=== PATIENT | female | born 1935 | race Caucasian/White ===

== ENCOUNTER 2017-06-26 19:26 | Inpatient (IN) | payer MEDICARE, OTHER ==
--- NOTE | 2017-06-26 21:37 | EDM.PDOC ---
ED HPI GENERAL MEDICAL PROBLEM - General Chief Complaint: Respiratory Problem Stated Complaint: SOB Time Seen by Provider: 06/26/17 19:44 Source of Information: Reports: Patient, Family (Daughter), Old Records, RN Notes Reviewed History Limitations: Reports: No Limitations, Physical Impairment (Hard of hearing) - History of Present Illness INITIAL COMMENTS - FREE TEXT/NARRATIVE: The patient states that she has COPD, and takes oxygen at 2 L per nasal cannula continuously. She states that she has had a dry cough for the past few weeks, and has been feeling progressively more tired and fatigued, then developed significantly worse dyspnea on exertion today. She denies shortness of breath at rest. She states that her oxygen saturation was down to 78% while on 2 L oxygen per nasal cannula. She states that her oxygen saturation is usually about 95%. She saw her PCP, Sola Rivera, today. The patient states that blood work and a chest x-ray were performed. The patient does not know any of the results. A Medrol Dosepak and Levaquin 500 mg #10 was prescribed. After picking up the prescriptions, the patient came here. The patient states that she's had similar symptoms in the past, several years ago, but she does not recall the diagnosis. Here in the ED, the patient's oxygen saturation is found to be 93% on 2 L nasal cannula. Left Chest Pain Score (Numeric/FACES): 10 - Related Data Allergies Allergy/AdvReac Type Severity Reaction Status Date / Time No Known Allergies Allergy Verified 06/26/17 19:37 Home Meds: Home Meds Aspirin [Adult Low Dose Aspirin EC] 81 mg PO DAILY 03/03/14 [History] Calcium Carbonate/Vitamin D3 [Calcium 500 + Vit D 400] 1 each PO DAILY 03/03/14 [History] Carvedilol [Coreg] 25 mg PO BID 03/03/14 [History] Fish Oil/Borage/Flax/Om3,6,9#1 [Pelion 3-6-9 Complex Softgel] 1 each PO DAILY [History] Furosemide [Lasix] 40 mg PO DAILY 03/03/14 [History] Lutein/Minerals/Vit A,C & E [Ocuvite] 1 tab PO DAILY 03/03/14 [History] Multivitamin [Multi-Vitamin Daily] 1 each PO DAILY 04/28/14 [History] atorvaSTATin [Lipitor] 10 mg PO BEDTIME 03/03/14 [History] Ascorbate Calcium/Bioflavonoid [Esme-C 500 MG] 1 each PO DAILY 06/06/14 [ History] Isosorbide Mononitrate [Imdur] 30 mg PO DAILY 06/06/14 [History] Losartan Potassium 50 mg PO DAILY 06/06/14 [History] Mirtazapine 15 mg PO DAILY 06/06/14 [History] Pantoprazole [ProTONIX] 40 mg PO DAILY 06/06/14 [History] Polyethylene Glycol 3350 [MiraLAX] 8.5 gm PO DAILY 06/06/14 [History] Fluticasone/Salmeterol [Advair 500-50] 1 puff INH BID #2 diskus 06/10/14 [Rx] Albuterol Sulfate 2.5 mg NEB ASDIRECTED PRN 01/24/15 [History] Doxycycline [Vibramycin] 100 mg PO Q12H #14 tab 01/24/15 [Rx] Past Medical History Cardiovascular History: Reports: Heart Failure, High Cholesterol, Hypertension Respiratory History: Reports: COPD Genitourinary History: Reports: Urinary Incontinence Psychiatric History: Reports: Depression Endocrine/Metabolic History: Reports: Hypothyroidism - Past Surgical History HEENT Surgical History: Reports: Cataract Surgery, Tonsillectomy GI Surgical History: Reports: Appendectomy Social & Family History - Tobacco Use Smoking Status *Q: Former Smoker Years of Tobacco use: 42 Packs/Tins Daily: 1 Month Tobacco Last Used: Quit Nov 2004 Second Hand Smoke Exposure: No - Alcohol Use Alcohol Use History: No Days Per Week of Alcohol Use: 0 - Recreational Drug Use Recreational Drug Use: No - Living Situation & Occupation Living situation: Reports: , Alone Occupation: Retired ED ROS GENERAL - Review of Systems Review Of Systems: See Below Constitutional: Reports: Fatigue HEENT: Reports: No Symptoms Respiratory: Reports: No Symptoms Cardiovascular: Reports: No Symptoms Endocrine: Reports: No Symptoms GI/Abdominal: Reports: No Symptoms : Reports: No Symptoms Musculoskeletal: Reports: No Symptoms Skin: Reports: No Symptoms Neurological: Reports: No Symptoms Psychiatric: Reports: No Symptoms Hematologic/Lymphatic: Reports: No Symptoms Immunologic: Reports: No Symptoms ED EXAM, GENERAL - Physical Exam Exam: See Below Exam Limited By: No Limitations General Appearance: Alert, WD/WN, No Apparent Distress Eye Exam: Bilateral Eye: Normal Inspection Ears: Normal External Exam, Hearing Grossly Normal Nose: Normal Inspection, No Blood Throat/Mouth: Normal Inspection, Normal Lips, Normal Voice, No Airway Compromise Head: Atraumatic, Normocephalic Neck: Normal Inspection, Full Range of Motion Respiratory/Chest: No Respiratory Distress, No Accessory Muscle Use, Decreased Breath Sounds. No: Crackles, Rhonchi, Wheezing Cardiovascular: Normal Peripheral Pulses, Regular Rate, Rhythm, No Gallop, No JVD, No Murmur, No Rub Peripheral Pulses: 4+: Radial (L), Radial (R) GI/Abdominal: Normal Bowel Sounds, Soft, Non-Tender, No Organomegaly, No Distention, No Abnormal Bruit, No Mass (Female) Exam: Deferred Rectal (Female) Exam: Deferred Back Exam: Normal Inspection, Full Range of Motion, NT Extremities: Normal Inspection, Normal Range of Motion, No Pedal Edema, Normal Capillary Refill Neurological: Alert, Oriented, Normal Cognition, No Motor/Sensory Deficits Psychiatric: Normal Affect Skin Exam: Warm, Dry, Intact, Normal Color, No Rash Lymphatic: No Adenopathy EKG INTERPRETATION EKG Date: 06/26/17 Time: 19:49 Rhythm: Other (Sinus tachycardia) Rate (Beats/Min): 100 [place]: Normal P-Wave: Present QRS: Normal ST-T: Normal QT: Normal Comparison: No Change (06/06/2014, except for rate) Course - Vital Signs Last Recorded V/S: Last Vital Signs Temp 37.2 C 06/26/17 19:31 Pulse 103 H 06/26/17 22:28 Resp 21 H 06/26/17 19:31 BP 148/98 H 06/26/17 22:28 Pulse Ox 77 L 06/26/17 19:31 - Orders/Labs/Meds Orders: Active Orders 24 hr Category Date Time Status EKG 12 Lead [EKG Documentation Completion] [RC] STAT Care 06/26/17 19:43 Active Chest 2V [CR] Stat Exams 06/26/17 20:01 Taken CULTURE BLOOD [BC] Stat Lab 06/26/17 20:25 Received CULTURE BLOOD [BC] Stat Lab 06/26/17 20:50 Received Sodium Chloride 0.9% [Normal Saline] 1,000 ml Med 06/26/17 21:45 Active IV ASDIRECTED Blood Culture x2 Reflex Set [OM.PC] Stat Oth 06/26/17 20:01 Ordered Medication Orders Sodium Chloride (Normal Saline) 1,000 mls @ 100 mls/hr IV ASDIRECTED PILI Last Admin: 06/26/17 21:47 Dose: 100 mls/hr Labs: Laboratory Tests 06/26/17 06/26/17 06/26/17 Range/Units 20:01 20:25 20:35 WBC 20.91 H (3.98-10.04) K/mm3 RBC 4.49 (3.98-5.22) M/mm3 Hgb 12.8 (11.2-15.7) gm/L Hct 40.3 (34.1-44.9) % MCV 89.8 (79.4-94.8) fl MCH 28.5 (25.6-32.2) pg MCHC 31.8 L (32.2-35.5) g/dl RDW Std Deviation 46.5 H (36.4-46.3) fL Plt Count 268 (182-369) K/mm3 MPV 9.1 L (9.4-12.3) fl Neutrophils % (Manual) 85 H (40-60) % Band Neutrophils % 0 (0-10) % Lymphocytes % (Manual) 12 L (20-40) % Atypical Lymphs % 0 % Monocytes % (Manual) 2 (2-10) % Eosinophils % (Manual) 1 (0.7-5.8) % Basophils % (Manual) 0 L (0.1-1.2) Platelet Estimate Adequate RBC Morph Comment Normal PT (8.0-13.0) SECONDS INR APTT (22-36) SECONDS D-Dimer, Quantitative (0.19-0.59) mg/L Puncture Site Rt radial ABG pH 7.42 (7.35-7.45) ABG pCO2 51.4 H (35.0-45.0) mmHg ABG pO2 63.0 L (80.0-100.0) mmHg ABG HCO3 32.5 H (22.0-26.0) meq/L ABG O2 Saturation 93.0 L (96.0-97.0) % ABG Base Excess 7.1 H (-2-2.0) Stefan Test Positive A-a Gradient 52 mmHg O2 Delivery Device Nasal cannula Oxygen Flow Rate 2.0 FiO2 28.00 (21.00-100.00) % Sodium 139 (136-145) mEq/L Potassium 3.8 (3.5-5.1) mEq/L Chloride 101 (98-107) mEq/L Carbon Dioxide 31 (21-32) mEq/L Anion Gap 10.8 (5-15) BUN 16 (7-18) mg/dL Creatinine 1.0 (0.55-1.02) mg/dL Est Cr Clr Drug Dosing TNP Estimated GFR (MDRD) 53 (>60) mL/min BUN/Creatinine Ratio 16.0 (14-18) Glucose 128 H (83-115) mg/dL Lactic Acid (0.4-2.0) mmol/L Calcium 9.4 (8.5-10.1) mg/dL Total Bilirubin 0.5 (0.2-1.0) mg/dL AST 25 (15-37) U/L ALT 21 (14-59) U/L Alkaline Phosphatase 75 (46-116) U/L Troponin I 0.214 H* (0.00-0.056) ng/mL Fqj-[id number]-Ihhjlsrlaon Pept 826 H (0-450) pg/mL Total Protein 6.6 (6.4-8.2) g/dl Albumin 3.0 L (3.4-5.0) g/dl Globulin 3.6 gm/dL Albumin/Globulin Ratio 0.8 L (1-2) 06/26/17 06/26/17 Range/Units 20:50 20:50 WBC (3.98-10.04) K/mm3 RBC (3.98-5.22) M/mm3 Hgb (11.2-15.7) gm/L Hct (34.1-44.9) % MCV (79.4-94.8) fl MCH (25.6-32.2) pg MCHC (32.2-35.5) g/dl RDW Std Deviation (36.4-46.3) fL Plt Count (182-369) K/mm3 MPV (9.4-12.3) fl Neutrophils % (Manual) (40-60) % Band Neutrophils % (0-10) % Lymphocytes % (Manual) (20-40) % Atypical Lymphs % % Monocytes % (Manual) (2-10) % Eosinophils % (Manual) (0.7-5.8) % Basophils % (Manual) (0.1-1.2) Platelet Estimate RBC Morph Comment PT 10.8 (8.0-13.0) SECONDS INR 0.99 APTT 30 (22-36) SECONDS D-Dimer, Quantitative 1.72 H (0.19-0.59) mg/L Puncture Site ABG pH (7.35-7.45) ABG pCO2 (35.0-45.0) mmHg ABG pO2 (80.0-100.0) mmHg ABG HCO3 (22.0-26.0) meq/L ABG O2 Saturation (96.0-97.0) % ABG Base Excess (-2-2.0) Stefan Test A-a Gradient mmHg O2 Delivery Device Oxygen Flow Rate FiO2 (21.00-100.00) % Sodium (136-145) mEq/L Potassium (3.5-5.1) mEq/L Chloride (98-107) mEq/L Carbon Dioxide (21-32) mEq/L Anion Gap (5-15) BUN (7-18) mg/dL Creatinine (0.55-1.02) mg/dL Est Cr Clr Drug Dosing Estimated GFR (MDRD) (>60) mL/min BUN/Creatinine Ratio (14-18) Glucose (83-115) mg/dL Lactic Acid 0.8 (0.4-2.0) mmol/L Calcium (8.5-10.1) mg/dL Total Bilirubin (0.2-1.0) mg/dL AST (15-37) U/L ALT (14-59) U/L Alkaline Phosphatase (46-116) U/L Troponin I (0.00-0.056) ng/mL [id number] Pept (0-450) pg/mL Total Protein (6.4-8.2) g/dl Albumin (3.4-5.0) g/dl Globulin gm/dL Albumin/Globulin Ratio (1-2) Meds: Medications Generic Name Dose Route Start Last Admin Trade Name Freq PRN Reason Stop Dose Admin Sodium Chloride 1,000 mls @ 100 mls/hr 06/26/17 21:45 06/26/17 21:47 Normal Saline IV 100 mls/hr ASDIRECTED PILI Administration Discontinued Medications Generic Name Dose Route Start Last Admin Trade Name Delmi PRN Reason Stop Dose Admin Aspirin 324 mg 06/26/17 22:03 06/26/17 22:28 Aspirin PO 06/26/17 22:04 324 mg ONETIME STA Administration Enoxaparin Sodium 60 mg 06/26/17 22:03 06/26/17 22:29 Lovenox SUBCUT 06/26/17 22:04 60 mg ONETIME ONE Administration Metoprolol Tartrate 5 mg 06/26/17 22:04 06/26/17 22:28 Lopressor IVPUSH 06/26/17 22:05 5 mg ONETIME ONE Administration - Re-Assessments/Exams Free Text/Narrative Re-Assessment/Exam: 06/26/17 21:00 Two-view chest radiograph reviewed. Cardiac silhouette is at the upper limits of normal. No pulmonary vascular congestion. No pleural effusions. No focal infiltrate. No pneumothorax. Hyperinflation and bilateral diaphragmatic flattening noted, consistent with COPD. Old right rib fracture, with associated atelectasis, noted. Hiatal hernia noted. Formal read per the Radiologist pending. 06/26/17 21:59 The patient's D-dimer returned elevated at 1.72. No prior d-dimer for comparison , and the patient's renal function is within normal limits. Her troponin is also elevated at 0.214; it was normal on 06/07/2014. The patient's BNP is modestly elevated at 826. No prior BNP for comparison, although her chest radiograph, as above, does not demonstrate decompensated CHF. The patient's ABG represents chronic metabolic alkalosis with full respiratory compensation. Because of the patient's elevated D-dimer, I have ordered a CT angiogram. I will order subcutaneous Lovenox to address both the elevated D-dimer and troponin. I will order four baby aspirin. While the medical records indicate that the patient is on Coreg, she is tachycardic, therefore I will order 5 mg Lopressor. 06/26/17 22:16 Notified by radiology that the patient underwent a CT angiogram of the chest earlier today. The reading per Dr. Vaughan is: 1. No findings of pulmonary embolism. 2. Coronary artery calcification. 3. Large hiatal hernia. 4. Mild areas of scarring and fibrosis as described above. I will cancel the CT angiogram of the chest. 06/26/17 23:20 Test results discussed with the patient and her son. Harrison's workup is remarkable for an elevated troponin, and an ECG demonstrating sinus tachycardia. The remainder of her workup is grossly unremarkable. While her BNP is elevated at 826, her chest radiograph does not suggest decompensated CHF, and her oxygen saturation is within normal limits on her usual 2 L oxygen per nasal cannula. I recommended admission to the hospital for further evaluation of her elevated troponin. The patient was agreeable. Case then discussed with Dr. Ann at 23:17. He agrees to admit the patient to telemetry. Departure - Departure Time of Disposition: 23:22 Disposition: Admitted As Inpatient 64 Condition: Fair Clinical Impression: Dyspnea on exertion, Sinus tachycardia, Elevated troponin - Discharge Information Referrals: Sola Rivera NP [Primary Care Provider] - - My Orders Last 24 Hours: My Active Orders 06/26/17 19:43 EKG 12 Lead [EKG Documentation Completion] [RC] STAT 06/26/17 20:01 Chest 2V [CR] Stat Blood Culture x2 Reflex Set [OM.PC] Stat 06/26/17 20:25 CULTURE BLOOD [BC] Stat 06/26/17 20:50 CULTURE BLOOD [BC] Stat 06/26/17 21:45 Sodium Chloride 0.9% [Normal Saline] 1,000 ml IV ASDIRECTED - Assessment/Plan Last 24 Hours: My Active Orders 06/26/17 19:43 EKG 12 Lead [EKG Documentation Completion] [RC] STAT 06/26/17 20:01 Chest 2V [CR] Stat Blood Culture x2 Reflex Set [OM.PC] Stat 06/26/17 20:25 CULTURE BLOOD [BC] Stat 06/26/17 20:50 CULTURE BLOOD [BC] Stat 06/26/17 21:45 Sodium Chloride 0.9% [Normal Saline] 1,000 ml IV ASDIRECTED
[2017-06-26] MEDS: Sodium Chloride 0.9% 1,000 ML IV SCH (21:47)
[2017-06-26] MEDS ORDERED: Enoxaparin 60 MG/0.6 ML Syringe SUBCUT ONE (22:03)
[2017-06-26] MEDS ORDERED: Aspirin 81 MG Tab.Chew PO STA (22:03)
[2017-06-26] MEDS ORDERED: Metoprolol Tartrate 5 MG/5 ML SDV IVPUSH ONE (22:04)
[2017-06-26] MEDS ORDERED: Bisacodyl 5 MG Tab PO PRN (23:41)
[2017-06-26] MEDS ORDERED: Acetaminophen/HYDROcodone 325-5 MG Tab PO PRN (23:41)
[2017-06-26] MEDS ORDERED: Temazepam 7.5 MG Cap PO PRN (23:41)
[2017-06-26] MEDS ORDERED: Ondansetron 4 MG/2 ML SDV IV PRN (23:41)
[2017-06-26] MEDS ORDERED: Docusate Sodium 100 MG Cap PO PRN (23:41)
[2017-06-26] MEDS ORDERED: Polyethylene Glycol 3350 Powder 17 GM Packet PO PRN (23:41)
[2017-06-26] MEDS ORDERED: Promethazine 12.5 MG in Sodium Chloride 0.9% 50 ML IV PRN (23:41)
[2017-06-26] MEDS ORDERED: LORazepam 2 MG/ML MDV IV PRN (23:41)
--- NOTE | 2017-06-26 23:41 | PCM.HP ---
H&P History of Present Illness - General Date of Service: 06/26/17 Admit Problem/Dx: Dyspnea Source of Information: Patient, Old Records, Provider, RN Notes Reviewed History Limitations: Reports: Respiratory Distress - History of Present Illness Initial Comments - Free Text/Narative: This is an 81-year-old elderly white female with past medical history of hypertension, hyperlipidemia, COPD, chronic respiratory failure on 2 L nasal cannula continuously, hypothyroidism, urinary incontinence, depression, and history of heart failure with preserved EF of 65-70% 06/09/2014 who presents to the emergency department with worsening dyspnea for the past few weeks now. She associates her primary chief complaint with dry cough and feeling easily tired and fatigued. Patient was initially seen by her primary care today at the clinic. She was found to have an elevated d-dimer of 1.72. CTA performed and she was negative for PE. Patient was discharged with Medrol Dosepak and an oral Levaquin 500 milligram daily for 10 days however patient decided to proceed to the emergency department after picking up her prescriptions for further eval. Patient reported similar episode in the past. On presentation to emergency department she was found to have a documented O2 sat of 92% on 2 L nasal cannula. Her initial workup in the emergency department shows a CBC remarkable for WBC of 20.91, neutrophils of 85%, lymphocytes of 12 persons, and basophils of 0%. Again d-dimer is 1.72. ABG shows pH of 7.42, PCO2 51.4, PO2 of 63.0, bicarbonate of 32.5 and O2 sat of 93% on 2 L nasal cannula. Her chemistry is remarkable for glucose of 128, troponin of 0.214, proBNP of 826, and albumin of 3. The EKG shows sinus tachycardia. Chest x-ray shows hyperinflated lungs with no obvious sign of infiltrates. Patient is being admitted for evaluation of her acute dyspnea. He is DNR/DNI. Left Chest Pain Score (Numeric/FACES): 10 - Related Data Allergies/Adverse Reactions: Allergies Allergy/AdvReac Type Severity Reaction Status Date / Time No Known Allergies Allergy Verified 06/26/17 19:37 Home Medications: Home Meds Aspirin [Adult Low Dose Aspirin EC] 81 mg PO DAILY 03/03/14 [History] Calcium Carbonate/Vitamin D3 [Calcium 500 + Vit D 400] 1 each PO DAILY 03/03/14 [History] Carvedilol [Coreg] 25 mg PO BID 03/03/14 [History] Fish Oil/Borage/Flax/Om3,6,9#1 [[place] 3-6-9 Complex Softgel] 1 each PO DAILY [History] Furosemide [Lasix] 40 mg PO DAILY 03/03/14 [History] Lutein/Minerals/Vit A,C & E [Ocuvite] 1 tab PO DAILY 03/03/14 [History] Multivitamin [Multi-Vitamin Daily] 1 each PO DAILY 03/03/14 [History] atorvaSTATin [Lipitor] 10 mg PO BEDTIME 03/03/14 [History] Ascorbate Calcium/Bioflavonoid [Esme-C 500 MG] 1 each PO DAILY 06/06/14 [ History] Isosorbide Mononitrate [Imdur] 30 mg PO DAILY 06/06/14 [History] Losartan Potassium 50 mg PO DAILY 06/06/14 [History] Mirtazapine 15 mg PO DAILY 06/06/14 [History] Pantoprazole [ProTONIX] 40 mg PO DAILY 06/06/14 [History] Polyethylene Glycol 3350 [MiraLAX] 8.5 gm PO DAILY 06/06/14 [History] Fluticasone/Salmeterol [Advair 500-50] 1 puff INH BID #2 diskus 06/10/14 [Rx] Albuterol Sulfate 2.5 mg NEB ASDIRECTED PRN 01/24/15 [History] Doxycycline [Vibramycin] 100 mg PO Q12H #14 tab 01/24/15 [Rx] Past Medical History Cardiovascular History: Reports: Heart Failure, High Cholesterol, Hypertension Respiratory History: Reports: COPD Genitourinary History: Reports: Urinary Incontinence Psychiatric History: Reports: Depression Endocrine/Metabolic History: Reports: Hypothyroidism - Past Surgical History HEENT Surgical History: Reports: Cataract Surgery, Tonsillectomy GI Surgical History: Reports: Appendectomy Social & Family History - Tobacco Use Smoking Status *Q: Never Smoker Years of Tobacco use: 40 Used Tobacco, but Quit: Yes Month Tobacco Last Used: Quit Nov 2004 Second Hand Smoke Exposure: No - Alcohol Use Days Per Week of Alcohol Use: 0 - Recreational Drug Use Recreational Drug Use: No H&P Review of Systems - Review of Systems: Review Of Systems: See Below General: Reports: Weakness, Fatigue. Denies: Fever, Chills, Malaise Pulmonary: Reports: Shortness of Breath, Cough. Denies: Sputum Cardiovascular: Reports: Dyspnea on Exertion Gastrointestinal: Denies: Abdominal Pain, Nausea, Vomiting Genitourinary: Reports: Incontinence Musculoskeletal: Reports: No Symptoms Skin: Denies: Cyanosis, Pallor, Diaphoresis, Rash Psychiatric: Denies: Depression, Mood Lability, Anxiety, Agitation, Hallucinations Neurological: Reports: Weakness. Denies: Confusion, Difficulty Walking, Gait Disturbance Hematologic/Lymphatic: Reports: No Symptoms Immunologic: Reports: No Symptoms Exam - Exam Exam: See Below - Vital Signs Vital Signs: Last Vital Signs Temp 37.2 C 06/26/17 19:31 Pulse 103 H 06/26/17 22:28 Resp 21 H 06/26/17 19:31 BP 148/98 H 06/26/17 22:28 Pulse Ox 77 L 06/26/17 19:31 Weight: 61.235 kg - Exam Quality Assessment: Supplemental Oxygen General: Alert, Cooperative, Mild Distress HEENT: Conjunctiva Clear, EACs Clear, EOMI, Hearing Intact, Mucosa Moist & [place] , Nares Patent, Normal Nasal Septum, Posterior Pharynx Clear, Pupils Equal, Pupils Reactive Neck: Supple, Trachea Midline, +2 Carotid Pulse wo Bruit, Full Range of Motion Lungs: Normal Respiratory Effort, Decreased Breath Sounds, Rhonchi, Other ( gastric sound in the chest ) Cardiovascular: Regular Rhythm, Tachycardia GI/Abdominal Exam: Normal Bowel Sounds, Soft, Non-Tender, No Organomegaly, No Distention, No Abnormal Bruit, No Mass (Female) Exam: Deferred Rectal (Female) Exam: Deferred Back Exam: Normal Inspection, Decreased Range of Motion Extremities: Normal Inspection, Normal Range of Motion, Non-Tender, No Pedal Edema, Normal Capillary Refill Peripheral Pulses: 2+: Posterior Tibial (L), Posterior Tibial (R), Dorsalis Pedis (L), Dorsalis Pedis (R) Skin: Warm, Dry, Intact Neuro Extensive - Mental Status: Oriented x3, Normal Cognition, Memory Intact Neuro Extensive - Motor, Sensory, Reflexes: CN II-XII Intact (limited but grossly intact), Normal Gait Psychiatric: Alert, Normal Affect, Normal Mood - Patient Data Lab Results Last 24 hrs: Laboratory Results - last 24 hr 06/26/17 06/26/17 06/26/17 Range/Units 20:01 20:25 20:35 WBC 20.91 H (3.98-10.04) K/mm3 RBC 4.49 (3.98-5.22) M/mm3 Hgb 12.8 (11.2-15.7) gm/L Hct 40.3 (34.1-44.9) % MCV 89.8 (79.4-94.8) fl MCH 28.5 (25.6-32.2) pg MCHC 31.8 L (32.2-35.5) g/dl RDW Std Deviation 46.5 H (36.4-46.3) fL Plt Count 268 (182-369) K/mm3 MPV 9.1 L (9.4-12.3) fl Neutrophils % (Manual) 85 H (40-60) % Band Neutrophils % 0 (0-10) % Lymphocytes % (Manual) 12 L (20-40) % Atypical Lymphs % 0 % Monocytes % (Manual) 2 (2-10) % Eosinophils % (Manual) 1 (0.7-5.8) % Basophils % (Manual) 0 L (0.1-1.2) Platelet Estimate Adequate RBC Morph Comment Normal PT (8.0-13.0) SECONDS INR APTT (22-36) SECONDS D-Dimer, Quantitative (0.19-0.59) mg/L Puncture Site Rt radial ABG pH 7.42 (7.35-7.45) ABG pCO2 51.4 H (35.0-45.0) mmHg ABG pO2 63.0 L (80.0-100.0) mmHg ABG HCO3 32.5 H (22.0-26.0) meq/L ABG O2 Saturation 93.0 L (96.0-97.0) % ABG Base Excess 7.1 H (-2-2.0) Stefan Test Positive A-a Gradient 52 mmHg O2 Delivery Device Nasal cannula Oxygen Flow Rate 2.0 FiO2 28.00 (21.00-100.00) % Sodium 139 (136-145) mEq/L Potassium 3.8 (3.5-5.1) mEq/L Chloride 101 (98-107) mEq/L Carbon Dioxide 31 (21-32) mEq/L Anion Gap 10.8 (5-15) BUN 16 (7-18) mg/dL Creatinine 1.0 (0.55-1.02) mg/dL Est Cr Clr Drug Dosing TNP Estimated GFR (MDRD) 53 (>60) mL/min BUN/Creatinine Ratio 16.0 (14-18) Glucose 128 H (83-115) mg/dL Lactic Acid (0.4-2.0) mmol/L Calcium 9.4 (8.5-10.1) mg/dL Total Bilirubin 0.5 (0.2-1.0) mg/dL AST 25 (15-37) U/L ALT 21 (14-59) U/L Alkaline Phosphatase 75 (46-116) U/L Troponin I 0.214 H* (0.00-0.056) ng/mL Xjy-D-Yxauvumbnnp Pept 826 H (0-450) pg/mL Total Protein 6.6 (6.4-8.2) g/dl Albumin 3.0 L (3.4-5.0) g/dl Globulin 3.6 gm/dL Albumin/Globulin Ratio 0.8 L (1-2) 06/26/17 06/26/17 Range/Units 20:50 20:50 WBC (3.98-10.04) K/mm3 RBC (3.98-5.22) M/mm3 Hgb (11.2-15.7) gm/L Hct (34.1-44.9) % MCV (79.4-94.8) fl MCH (25.6-32.2) pg MCHC (32.2-35.5) g/dl RDW Std Deviation (36.4-46.3) fL Plt Count (182-369) K/mm3 MPV (9.4-12.3) fl Neutrophils % (Manual) (40-60) % Band Neutrophils % (0-10) % Lymphocytes % (Manual) (20-40) % Atypical Lymphs % % Monocytes % (Manual) (2-10) % Eosinophils % (Manual) (0.7-5.8) % Basophils % (Manual) (0.1-1.2) Platelet Estimate RBC Morph Comment PT 10.8 (8.0-13.0) SECONDS INR 0.99 APTT 30 (22-36) SECONDS D-Dimer, Quantitative 1.72 H (0.19-0.59) mg/L Puncture Site ABG pH (7.35-7.45) ABG pCO2 (35.0-45.0) mmHg ABG pO2 (80.0-100.0) mmHg ABG HCO3 (22.0-26.0) meq/L ABG O2 Saturation (96.0-97.0) % ABG Base Excess (-2-2.0) Stefan Test A-a Gradient mmHg O2 Delivery Device Oxygen Flow Rate FiO2 (21.00-100.00) % Sodium (136-145) mEq/L Potassium (3.5-5.1) mEq/L Chloride (98-107) mEq/L Carbon Dioxide (21-32) mEq/L Anion Gap (5-15) BUN (7-18) mg/dL Creatinine (0.55-1.02) mg/dL Est Cr Clr Drug Dosing Estimated GFR (MDRD) (>60) mL/min BUN/Creatinine Ratio (14-18) Glucose (83-115) mg/dL Lactic Acid 0.8 (0.4-2.0) mmol/L Calcium (8.5-10.1) mg/dL Total Bilirubin (0.2-1.0) mg/dL AST (15-37) U/L ALT (14-59) U/L Alkaline Phosphatase (46-116) U/L Troponin I (0.00-0.056) ng/mL Bxg-M-Wfunktvryla Pept (0-450) pg/mL Total Protein (6.4-8.2) g/dl Albumin (3.4-5.0) g/dl Globulin gm/dL Albumin/Globulin Ratio (1-2) Result Diagrams: 06/27/17 05:10 06/27/17 05:10 EKG INTERPRETATION EKG Date: 06/26/17 Time: 19:49 Rhythm: Other (Sinus Tachycardia) Rate (Beats/Min): 100 [place]: Normal P-Wave: Present QRS: Normal ST-T: Normal QT: Normal Comparison: No Change *Q Meaningful Use (ADM) - VTE *Q VTE Criteria *Q: - Stroke *Q Stroke Criteria *Q: - AMI *Q AMI Criteria *Q: Problem List Initiated/Reviewed/Updated: Yes Orders Last 24hrs: Active Orders 24 hr Category Date Time Status EKG 12 Lead [EKG Documentation Completion] [RC] STAT Care 06/26/17 19:43 Active Chest 2V [CR] Stat Exams 06/26/17 20:01 Taken CULTURE BLOOD [BC] Stat Lab 06/26/17 20:25 Received CULTURE BLOOD [BC] Stat Lab 06/26/17 20:50 Received Sodium Chloride 0.9% [Normal Saline] 1,000 ml Med 06/26/17 21:45 Active IV ASDIRECTED Blood Culture x2 Reflex Set [OM.PC] Stat Oth 06/26/17 20:01 Ordered Medication Orders Sodium Chloride (Normal Saline) 1,000 mls @ 100 mls/hr IV ASDIRECTED PILI Last Admin: 06/26/17 21:47 Dose: 100 mls/hr Assessment/Plan Comment:: Assessment/Plan: Acute: Dyspnea - Possible Angina Equivalent with positive troponin level - 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 Low Score (0-3 points), risk of MACE of 0.9-1.7%: Predicts 6-week risk of major adverse cardiac event - Chest pain felt more related cardiac - Risk factors: HF with Preserved EF of 65-70%, HTN, HLD, Cand oronary Artery Calcification on CTA - CP protocol: Serial Troponin Q6 x2, ekg x 1 in am , TFT, and Lipid panel in AM - ASA, Statin, Nitro, PRN IV Morphine, BB - Lexiscan stress test- her pre-CAD risk is moderate Large Hiatal Hernia - Continue PPI - May consider GS consult Elavated D-Dimer - D-dimer 1.72 - CTA negative Sinus Tachycardia - TFT in am - Received initial treatment in ED - Telemetry - PRN Metoprolol for HR > 110 Chronic: HTN HLD COPD with fibrosis and Scarring Respiratory Failure on 2L NC continuously HF with Preserved EF 65-70% and LVH 06/19/2014 Hypothyroidism Urinary Incontinence Depression Plan: Admit to Med-Surg W/ Tele Routine AM Labs Resume Home Meds PT/OT consult Lexiscan in AM SW/CM for d/c planning Code status: DNR/DNI
[2017-06-26] MEDS ORDERED: hydrALAZINE 20 MG/ML SDV IVPUSH PRN (23:47)
[2017-06-26] MEDS ORDERED: Morphine 2 MG/ML Syringe IVPUSH PRN (23:47)
[2017-06-26] MEDS ORDERED: Metoprolol Tartrate 5 MG/5 ML SDV IVPUSH PRN (23:47)
[2017-06-27] MEDS ORDERED: methylPREDNISolone Sodium Succinate 40 MG/1 ML SDV IVPUSH ONE (00:26)
[2017-06-27] MEDS ORDERED: Azithromycin 250 MG in Sodium Chloride 0.9% 250 ML IV ONE (00:27)
[2017-06-27] MEDS: Albuterol/Ipratropium 3.0-0.5 MG/3 ML Neb Soln NEB PRN ×2 (00:36→06:20)
[2017-06-27] MEDS: methylPREDNISolone Sodium Succinate 40 MG/1 ML SDV IVPUSH SCH ×3 (02:42→17:25)
[2017-06-27] MEDS: Acetaminophen 325 MG Tab PO PRN ×2 (02:42→21:42)
[2017-06-27] MEDS: Pantoprazole 40 MG Tab.CR PO SCH (06:42)
--- NOTE | 2017-06-27 07:53 | PCM.PN ---
- General Info Date of Service: 06/27/17 Admission Dx/Problem (Free Text): Dyspnea Subjective Update: Follow up Functional Status: Reports: Pain Controlled, Tolerating Diet, Urinating - Review of Systems General: Denies: Fever, Weakness, Fatigue, Malaise, Chills HEENT: Reports: No Symptoms Pulmonary: Reports: Shortness of Breath Cardiovascular: Denies: Chest Pain Gastrointestinal: Denies: Abdominal Pain, Nausea, Vomiting Genitourinary: Reports: No Symptoms Musculoskeletal: Reports: No Symptoms Skin: Denies: Cyanosis Neurological: Denies: Confusion, Difficulty Walking, Weakness, Gait Disturbance Psychiatric: Denies: Depression, Anxiety, Agitation, Hallucinations Systems Review Comment:: No significant overnight issues. She still has dry cough. She slept really good last night. She feels better this am. No new complaints this morning. - Patient Data Vitals - Most Recent: Last Vital Signs Temp 37.6 C 06/27/17 03:23 Pulse 77 06/27/17 03:23 Resp 18 06/27/17 03:23 BP 121/59 L 06/27/17 03:23 Pulse Ox 97 06/27/17 06:24 Weight - Most Recent: 56.563 kg I&O - Last 24 Hours: Intake & Output 06/26/17 06/27/17 06/27/17 22:59 06:59 14:59 Intake Total 30 Balance 30 Lab Results Last 24 Hours: Laboratory Results - last 24 hr 06/27/17 06/27/17 Range/Units 05:10 05:10 WBC 18.54 H (3.98-10.04) K/mm3 RBC 4.10 (3.98-5.22) M/mm3 Hgb 11.7 (11.2-15.7) gm/L Hct 37.4 (34.1-44.9) % MCV 91.2 (79.4-94.8) fl MCH 28.5 (25.6-32.2) pg MCHC 31.3 L (32.2-35.5) g/dl RDW Std Deviation 47.1 H (36.4-46.3) fL Plt Count 293 (182-369) K/mm3 MPV 9.4 (9.4-12.3) fl Neut % (Auto) 92.4 H (34.0-71.1) % Lymph % (Auto) 4.4 L (19.3-51.7) % [place] % (Auto) 2.6 L (4.7-12.5) % Eos % (Auto) 0.1 L (0.7-5.8) Baso % (Auto) 0.1 (0.1-1.2) % Neut # (Auto) 17.15 H (1.56-6.13) K/mm3 Lymph # (Auto) 0.82 L (1.18-3.74) K/mm3 [place] # (Auto) 0.48 H (0.24-0.36) K/mm3 Eos # (Auto) 0.01 L (0.04-0.36) K/mm3 Baso # (Auto) 0.01 (0.01-0.08) K/mm3 Sodium 142 (136-145) mEq/L Potassium 3.8 (3.5-5.1) mEq/L Chloride 104 (98-107) mEq/L Carbon Dioxide 33 H (21-32) mEq/L Anion Gap 8.8 (5-15) BUN 14 (7-18) mg/dL Creatinine 1.0 (0.55-1.02) mg/dL Est Cr Clr Drug Dosing 30.62 mL/min Estimated GFR (MDRD) 53 (>60) mL/min BUN/Creatinine Ratio 14.0 (14-18) Glucose 170 H (83-115) mg/dL Calcium 9.0 (8.5-10.1) mg/dL Magnesium 1.7 L (1.8-2.4) mg/dl CK-MB (CK-2) 1.0 (0-3.6) ng/ml Troponin I 0.161 H* (0.00-0.056) ng/mL Triglycerides 30 (<150) mg/dL Cholesterol 132 (<200) mg/dL LDL Cholesterol Direct 41 (<100) mg/dL HDL Cholesterol 87.0 H (40-59) mg/dL Free T4 1.60 H (0.76-1.46) ng/dL TSH 3rd Generation 0.446 (0.358-3.74) uIU/mL Med Orders - Current: Current Medications Acetaminophen (Tylenol) 650 mg PO Q4H PRN PRN Reason: Pain (Mild 1-3)/fever Last Admin: 06/27/17 02:42 Dose: 650 mg Hydrocodone Bitart/Acetaminophen ([place] 325-5 Mg) 1 tab PO Q4H PRN PRN Reason: Pain (moderate 4-6) Albuterol/Ipratropium (Duoneb 3.0-0.5 Mg/3 Ml) 3 ml NEB Q4H PRN PRN Reason: Shortness Of Breath/wheezing Last Admin: 06/27/17 06:20 Dose: 3 ml Amlodipine Besylate (Norvasc) 5 mg PO DAILY [facility] Aspirin (Halfprin) 81 mg PO DAILY [facility] Bisacodyl (Dulcolax) 5 mg PO DAILY PRN PRN Reason: Constipation Calcium Carbonate (Calcium Carbonate/Vitamin D 1500 Mg-200 Unit) 0.5 tab PO DAILY [facility] Carvedilol (Coreg) 25 mg PO BID [facility] Docusate Sodium (Colace) 100 mg PO BID PRN PRN Reason: Constipation Hydralazine HCl (Apresoline) 10 mg IVPUSH Q4H PRN PRN Reason: Hypertension Sodium Chloride (Normal Saline) 1,000 mls @ 100 mls/hr IV ASDIRECTED [facility] Last Admin: 06/26/17 21:47 Dose: 100 mls/hr Promethazine HCl 12.5 mg/ (Sodium Chloride) 50.5 mls @ 100 mls/hr IV Q6H PRN PRN Reason: Nausea/Vomiting Azithromycin 250 mg/ Sodium (Chloride) 250 mls @ 250 mls/hr IV Q24H [facility] Isosorbide Mononitrate (Imdur) 30 mg PO BID [facility] Lorazepam (Ativan) 0.5 mg IV Q6H PRN PRN Reason: Anxiety Losartan Potassium (Cozaar) 50 mg PO DAILY [facility] Magnesium Sulfate (Pharmacy To Dose - Magnesium Replacement) 0 dose .XX ASDIRECTED PRN PRN Reason: RX TO WATCH MAG LEVELS Methylprednisolone Sodium Succinate (Solu-Medrol) 60 mg IVPUSH Q8H [facility] Last Admin: 06/27/17 02:42 Dose: 60 mg Metoprolol Tartrate (Lopressor) 5 mg IVPUSH Q4H PRN PRN Reason: Tachycardia Mirtazapine (Remeron) 15 mg PO DAILY [facility] Morphine Sulfate (Morphine) 0.25 mg IVPUSH Q4H PRN PRN Reason: Dyspnea Multivitamins (Thera) 1 each PO DAILY [facility] Ondansetron HCl (Zofran) 4 mg IV Q6H PRN PRN Reason: Nausea/Vomiting Pantoprazole Sodium (Protonix) 40 mg PO DAILY@0700 [facility] Last Admin: 06/27/17 06:42 Dose: 40 mg Polyethylene Glycol (Miralax) 17 gm PO DAILY PRN PRN Reason: Constipation Polyethylene Glycol (Miralax) 8.5 gm PO DAILY [facility] Potassium Chloride (Pharmacy To Dose - Potassium Replacement) 0 dose .XX ASDIRECTED PRN PRN Reason: RX TO WATCH K LEVELS Senna/Docusate Sodium (Senna Plus) 1 tab PO BID PRN PRN Reason: Constipation Simvastatin (Zocor) 10 mg PO BEDTIME [facility] Temazepam (Restoril) 7.5 mg PO BEDTIME PRN PRN Reason: Sleep Vit A/Vit C/Vit E/Selen/Cu/Zn/Lutei (Icaps Mv) 1 tab PO DAILY [facility] Discontinued Medications Aspirin (Aspirin) 324 mg PO ONETIME STA Stop: 06/26/17 22:04 Last Admin: 06/26/17 22:28 Dose: 324 mg Enoxaparin Sodium (Lovenox) 60 mg SUBCUT ONETIME ONE Stop: 06/26/17 22:04 Last Admin: 06/26/17 22:29 Dose: 60 mg Azithromycin 250 mg/ Sodium (Chloride) 250 mls @ 250 mls/hr IV ONETIME ONE Stop: 06/27/17 01:26 Last Admin: 06/27/17 02:44 Dose: Not Given Azithromycin 250 mg/ Sodium (Chloride) 125 mls @ 125 mls/hr IV ONETIME ONE Stop: 06/27/17 02:29 Last Admin: 06/27/17 02:40 Dose: 125 mls/hr Isosorbide Mononitrate (Imdur) 30 mg PO DAILY [facility] Methylprednisolone Sodium Succinate (Solu-Medrol) 40 mg IVPUSH ONETIME ONE Stop: 06/27/17 00:27 Last Admin: 06/27/17 00:50 Dose: Not Given Metoprolol Tartrate (Lopressor) 5 mg IVPUSH ONETIME ONE Stop: 06/26/17 22:05 Last Admin: 06/26/17 22:28 Dose: 5 mg - Exam Quality Assessment: Supplemental Oxygen General: Alert, Oriented, Cooperative, No Acute Distress HEENT: Pupils Equal, Pupils Reactive, EOMI, Mucous Membr. Moist/[place] Neck: Supple, Trachea Midline, No JVD Lungs: Clear to Auscultation, Normal Respiratory Effort Cardiovascular: Regular Rate, Regular Rhythm GI/Abdominal Exam: Normal Bowel Sounds, Soft, Non-Tender, No Organomegaly, No Distention, No Abnormal Bruit, No Mass, Pelvis Stable (Female) Exam: Deferred Back Exam: Normal Inspection, Decreased Range of Motion Extremities: Normal Inspection, Normal Range of Motion, Non-Tender, No Pedal Edema, Normal Capillary Refill Peripheral Pulses: 2+: Dorsalis Pedis (L), Dorsalis Pedis (R) Skin: Warm, Dry, Intact Neurological: No New Focal Deficit Psy/Mental Status: Alert, Normal Affect, Normal Mood - Problem List Review Problem List Initiated/Reviewed/Updated: Yes - My Orders Last 24 Hours: My Active Orders 06/27/17 00:30 methylPREDNISolone Sod Succ [Solu-MEDROL] 60 mg IVPUSH Q8H 06/27/17 05:10 LIPID PANEL [CHEM] AM T4 FREE [CHEM] Stat TSH [CHEM] Stat 06/27/17 09:00 Azithromycin [Zithromax] 250 mg Sodium Chloride 0.9% [Normal Saline] 250 ml IV Q24H Isosorbide Mononitrate [Imdur] 30 mg PO BID amLODIPine [Norvasc] 5 mg PO DAILY - Plan Plan:: Assessment/Plan: Acute: Dyspnea, Improved - Possible Angina Equivalent with positive troponin level - 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 Low Score (0-3 points), risk of MACE of 0.9-1.7%: Predicts 6-week risk of major adverse cardiac event - Chest pain felt more related cardiac - Risk factors: HF with Preserved EF of 65-70%, HTN, HLD, and Coronary Artery Calcification on CTA - CP protocol: Serial Troponin Q6 x2, ekg x 1 in am , TFT, and Lipid panel in AM - ASA, Statin, Nitro, PRN IV Morphine, BB - Lexiscan stress test- her pre-CAD risk is moderate Large Hiatal Hernia - Continue PPI - I felt this is causing her dry cough and possibly dyspnea - May need to see a GS in [place] Resolved: S/p Elavated D-Dimer - D-dimer 1.72 - CTA negative S/p Sinus Tachycardia - TFT: Normal TSH and slightly elevated FT4 - Received initial treatment in ED - Telemetry - PRN Metoprolol for HR > 110 Chronic: HTN HLD/CAD COPD with Fibrosis and Scarring Respiratory Failure on 2L NC continuously HF with Preserved EF 65-70% and LVH 06/19/2014 Hypothyroidism Urinary Incontinence Depression Plan: She is much better and hemodynamically stable Routine AM Labs Resume Home Meds Lipid Panel unremarkable Continue PT/OT Lexiscan/Perfusion scan today SW/CM for d/c planning Code status: DNR/DNI
[2017-06-27] MEDS ORDERED: Sodium Chloride 0.9% 10 ML Syringe FLUSH SCH (08:15)
[2017-06-27] MEDS ORDERED: Isosorbide Mononitrate 30 MG Tab.ER PO SCH (09:00)
[2017-06-27] MEDS ORDERED: Azithromycin 250 MG in Sodium Chloride 0.9% 250 ML IV SCH (09:00)
--- NOTE | 2017-06-27 10:32 | CR ---
Chest: Two views of the chest were obtained. Comparison: Previous chest x-ray of 01/24/15. Moderately large hiatal hernia is seen. Heart size at the upper limits of normal. Tortuous thoracic aorta is seen. Lungs are clear with no acute infiltrates. Slight deformity within several right and left ribs compatible with old healed fractures. Bony structures are also osteopenic. Impression: 1. Incidental findings. Nothing acute is appreciated. Diagnostic code #2
[2017-06-27] MEDS: Sodium Chloride 0.9% 1,000 ML IV SCH ×2 (10:35→21:42)
[2017-06-27] MEDS: Azithromycin 250 MG in Sodium Chloride 0.9% 250 ML IV SCH (10:36)
[2017-06-27] MEDS ORDERED: Magnesium Oxide 400 MG Tab PO ONE (11:00)
[2017-06-27] MEDS: Multivitamins with Minerals/Folic Acid/Lutein/Zeaxanth Tab PO SCH (11:11)
[2017-06-27] MEDS: Multivitamins,Therapeutic Tab PO SCH (11:11)
[2017-06-27] MEDS: Mirtazapine 15 MG Tab PO SCH (11:12)
[2017-06-27] MEDS: Aspirin 81 MG Tab.EC PO SCH (11:12)
[2017-06-27] MEDS: Losartan 25 MG Tab PO SCH (11:13)
[2017-06-27] MEDS: Carvedilol 12.5 MG Tab PO SCH ×2 (11:13→20:48)
[2017-06-27] MEDS: Isosorbide Mononitrate 30 MG Tab.ER PO SCH ×2 (11:13→20:48)
[2017-06-27] MEDS: amLODIPine 5 MG Tab PO SCH (11:13)
[2017-06-27] MEDS: Polyethylene Glycol 3350 Powder 17 GM Packet PO SCH (11:14)
[2017-06-27] MEDS: Calcium Carbonate/Vitamin D3 1500 MG-200 Units Tab PO SCH (11:15)
[2017-06-27] MEDS ORDERED: guaiFENesin 600 MG Tab.ER PO ONE (13:04)
--- NOTE | 2017-06-27 15:48 | NM ---
Cardiolite cardiac exam Technique: I have data stating the patient was stressed utilizing Lexiscan protocol. Stress dose of technetium 99m Cardiolite was 10.8 mCi. Rest dose was 30.0 mCi. SPECT imaging was obtained in 3 planes for both portions of the study. Study was also gated. Low-dose chest CT performed to allow for attenuation correction. Findings: On the attenuation corrected images there is diminished activity being seen within portions of the lateral and inferolateral mo which is noted on the stress study and improves on the rest exam. Findings are suspicious for subtle area of reversible ischemia. Ejection fraction is above 70%. Wall thickening is normal. Impression: 1. Attenuation correction images suggest a subtle area of reversible ischemia within the inferior and inferolateral mo. 2. Other portions of the Cardiolite cardiac exam are unremarkable. Diagnostic code #5
[2017-06-27] MEDS ORDERED: Simvastatin 10 MG Tab PO SCH (21:00)
[2017-06-28] MEDS: methylPREDNISolone Sodium Succinate 40 MG/1 ML SDV IVPUSH SCH ×2 (01:39→09:33)
[2017-06-28] MEDS: Pantoprazole 40 MG Tab.CR PO SCH (06:28)
[2017-06-28] MEDS: Sodium Chloride 0.9% 1,000 ML IV SCH (08:00)
[2017-06-28] MEDS ORDERED: guaiFENesin 600 MG Tab.ER PO SCH (09:00)
--- NOTE | 2017-06-28 09:10 | PCM.DCSUM1 ---
Discharge Summary - Hospital Course Brief History: This is an 81-year-old elderly white female with past medical history of hypertension, hyperlipidemia, COPD, chronic respiratory failure on 2 L nasal cannula continuously, hypothyroidism, urinary incontinence, depression, and history of heart failure with preserved EF of 65-70% 06/09/2014 who presents to the emergency department with worsening dyspnea for the past few weeks and was admitted for further evaluation. - Discharge Data Discharge Date: 06/28/17 Discharge Disposition: Home, Self-Care 01 Condition: Good - Discharge Diagnosis/Problem(s) (1) CAD (coronary artery disease) SNOMED Code(s): 32613047 ICD Code: I25.10 - ATHSCL HEART DISEASE OF [place] CORONARY ARTERY W/O ANG PCTRS Status: Chronic Qualifiers: Coronary Disease-Associated Artery/Lesion type: unspecified vessel or lesion type Associated angina: with stable angina (2) ACS (acute coronary syndrome) SNOMED Code(s): 239315783 ICD Code: I24.9 - ACUTE ISCHEMIC HEART DISEASE, UNSPECIFIED Status: Chronic (3) Dyspnea on exertion SNOMED Code(s): 09011038 ICD Code: R06.09 - OTHER FORMS OF DYSPNEA Status: Chronic (4) Hiatal hernia SNOMED Code(s): 66755577 ICD Code: K44.9 - DIAPHRAGMATIC HERNIA WITHOUT OBSTRUCTION OR GANGRENE Status: Chronic (5) Elevated d-dimer SNOMED Code(s): 700354938 ICD Code: R79.89 - OTHER SPECIFIED ABNORMAL FINDINGS OF BLOOD CHEMISTRY Status: Ruled-out (6) Sinus tachycardia by electrocardiogram SNOMED Code(s): 722626494 ICD Code: R00.0 - TACHYCARDIA, UNSPECIFIED Status: Resolved - Patient Summary/Data Operative Procedure(s) Performed: None Complications: None Recommended Follow-up Testing/Procedures: Recommend to see a golf technician for heart cath and gastric surgeon for her large hiatal hernia Hospital Course: Patient was admitted for acute dyspnea. We felt this was related to COPD exacerbation. However after putting it all together her diagnostic data and clinical examination, the patient actually had an acute coronary syndrome. She was positive with both serial troponins and nuclear stress test. We recommended transfer for higher level of care and for possible heart catheter but patient refused. She opted instead for medical management. Therefore, her Imdur was optimize and Norvasc was added to improve her symptom. Her hospital course was complicated by the finding of large hiatal hernia. We felt this was contributing to her chronic dry cough with constant irritation of her stomach to her thoraxic contents i.e. esophagus +/- lungs. Again the patient was offered for upper level of care for possible surgical intervention but she refused it. Patient is now ready and stable for discharge. Patient was advised to check her blood pressure 3-4 times a day and 3-4 times a week and show the log to her primary care doctor on follow-up appointment. She was further advised to follow- up with Dr. Lyon in [place] in 1-2 weeks. Patient expressed understanding and in agreement with the plans as discussed above. All questions were answered. - Patient Instructions Diet: Usual Diet as Tolerated Activity: As Tolerated Driving: Do Not Drive Showering/Bathing: May Shower Notify Provider of: Fever, Increased Pain, Nausea and/or Vomiting Other/Special Instructions: - Please take all mdications as directed. - Check your BP at least 3x/day and 3-4x/week. Show log to your family doctor on follow up appointment. - Recommend you see a Migration Specialist and Gastric Surgeon for your Coronary Artery Disease and Large Hiatal Hernia respectively. - Call or follow up with your family doctor for any questions or concerns right after discharge - Discharge Plan Prescriptions/Med Rec: Isosorbide Mononitrate [Imdur] 30 mg PO BID #60 tab.er amLODIPine Besylate [Norvasc] 2.5 mg PO DAILY #30 tablet Home Medications: Home Meds Aspirin [Adult Low Dose Aspirin EC] 81 mg PO DAILY 03/03/14 [History] Calcium Carbonate/Vitamin D3 [Calcium 500 + Vit D 400] 1 each PO DAILY 03/03/14 [History] Carvedilol [Coreg] 25 mg PO BID 03/03/14 [History] Furosemide [Lasix] 40 mg PO DAILY 03/03/14 [History] Lutein/Minerals/Vit A,C & E [Ocuvite] 1 tab PO DAILY 03/03/14 [History] Multivitamin [Multi-Vitamin Daily] 1 each PO DAILY 03/03/14 [History] atorvaSTATin [Lipitor] 10 mg PO BEDTIME 03/03/14 [History] Ascorbate Calcium/Bioflavonoid [Esme-C 500 MG] 1 each PO DAILY 06/06/14 [ History] Mirtazapine 15 mg PO DAILY 06/06/14 [History] Pantoprazole [ProTONIX] 40 mg PO DAILY 06/06/14 [History] Polyethylene Glycol 3350 [MiraLAX] 8.5 gm PO DAILY 06/06/14 [History] Fluticasone/Salmeterol [Advair 500-50] 1 puff INH BID #2 diskus 06/10/14 [Rx] Albuterol Sulfate 2.5 mg NEB ASDIRECTED PRN 01/24/15 [History] Denosumab [Prolia] 60 mg INJECT ASDIRECTED 06/28/17 [History] Isosorbide Mononitrate [Imdur] 30 mg PO BID #60 tab.er 06/28/17 [Rx] Losartan Potassium 50 mg PO DAILY #0 06/28/17 [Rx] Tiotropium [place] [Spiriva Respimat] 2.5 mcg INH DAILY 06/28/17 [History] amLODIPine Besylate [Norvasc] 2.5 mg PO DAILY #30 tablet 06/28/17 [Rx] Patient Handouts: Shortness of Breath, [id number], Chronic Obstructive Pulmonary Disease, [id number], Oxygen Use at Home, Aspirin, ASA oral tablets, Coronary Artery Disease, Female Referrals: Aveilno Lyon MD [Ordering Only Provider] - (already has an appointment made by her son.) - Discharge Summary/Plan Comment DC Time >30 min.: Yes (45 mins) Discharge Summary/Plan Comment: Discharge to Home Due to listed medical diagnoses in this report, patient is in need of skilled home services for nursing, PLUMBER MAINTENANCE services and physical therapy. Patient is homebound due to generalized weakness, mobility deficits, and decreased activity tolerance secondary to dyspnea. Patient will benefit from services above to increase her level of independence and functioning. Patient will be followed outpatient by her PCP, Dr. Lyon in [place], [place]. - General Info Date of Service: 06/28/17 Admission Dx/Problem (Free Text: Dyspnea Subjective Update: Follow up Functional Status: Reports: Pain Controlled, Tolerating Diet, Ambulating, Urinating - Review of Systems General: Denies: Fever HEENT: Denies: Contact Lenses Pulmonary: Reports: Shortness of Breath. Denies: Sputum Cardiovascular: Reports: Dyspnea on Exertion. Denies: Chest Pain, Palpitations , Edema, Lightheadedness Gastrointestinal: Denies: Abdominal Pain, Nausea, Vomiting Genitourinary: Reports: No Symptoms Musculoskeletal: Reports: No Symptoms Skin: Denies: Cyanosis, Pallor, Pruritis, Rash Neurological: Denies: Confusion, Difficulty Walking, Weakness, Gait Disturbance Psychiatric: Denies: Depression, Anxiety, Agitation, Hallucinations Systems Review Comment: No significant overnight or acute issues. She has no symptoms at rest. She is ready to go. She has no new complaints. - Patient Data Vitals - Most Recent: Last Vital Signs Temp 37.0 C 06/28/17 07:29 Pulse 71 06/28/17 07:29 Resp 17 06/28/17 07:29 BP 133/75 06/28/17 07:29 Pulse Ox 98 06/28/17 07:29 Weight - Most Recent: 58.287 kg I&O - Last 24 hours: Intake & Output 06/27/17 06/28/17 06/28/17 22:59 06:59 14:59 Intake Total 1470 1406 Output Total 350 425 Balance 1120 981 Lab Results - Last 24 hrs: Laboratory Results - last 24 hr 06/27/17 06/28/17 Range/Units 11:56 06:30 Sodium 144 (136-145) mEq/L Potassium 4.0 (3.5-5.1) mEq/L Chloride 109 H (98-107) mEq/L Carbon Dioxide 30 (21-32) mEq/L Anion Gap 9.0 (5-15) BUN 15 (7-18) mg/dL Creatinine 0.9 (0.55-1.02) mg/dL Est Cr Clr Drug Dosing 34.02 mL/min Estimated GFR (MDRD) 60 (>60) mL/min BUN/Creatinine Ratio 16.7 (14-18) Glucose 173 H (83-115) mg/dL Calcium 8.9 (8.5-10.1) mg/dL Magnesium 1.9 (1.8-2.4) mg/dl CK-MB (CK-2) 1.1 (0-3.6) ng/ml Troponin I 0.151 H* (0.00-0.056) ng/mL Med Orders - Current: Current Medications Acetaminophen (Tylenol) 650 mg PO Q4H PRN PRN Reason: Pain (Mild 1-3)/fever Last Admin: 06/27/17 21:42 Dose: 650 mg Hydrocodone Bitart/Acetaminophen ([place] 325-5 Mg) 1 tab PO Q4H PRN PRN Reason: Pain (moderate 4-6) Albuterol/Ipratropium (Duoneb 3.0-0.5 Mg/3 Ml) 3 ml NEB Q4H PRN PRN Reason: Shortness Of Breath/wheezing Last Admin: 06/27/17 06:20 Dose: 3 ml Amlodipine Besylate (Norvasc) 5 mg PO DAILY [facility] Last Admin: 06/27/17 11:13 Dose: 5 mg Aspirin (Halfprin) 81 mg PO DAILY [facility] Last Admin: 06/27/17 11:12 Dose: 81 mg Bisacodyl (Dulcolax) 5 mg PO DAILY PRN PRN Reason: Constipation Calcium Carbonate (Calcium Carbonate/Vitamin D 1500 Mg-200 Unit) 0.5 tab PO DAILY [facility] Last Admin: 06/27/17 11:15 Dose: 0.5 tab Carvedilol (Coreg) 25 mg PO BID [facility] Last Admin: 06/27/17 20:48 Dose: 25 mg Docusate Sodium (Colace) 100 mg PO BID PRN PRN Reason: Constipation Guaifenesin (Mucinex) 600 mg PO BID [facility] Hydralazine HCl (Apresoline) 10 mg IVPUSH Q4H PRN PRN Reason: Hypertension Sodium Chloride (Normal Saline) 1,000 mls @ 100 mls/hr IV ASDIRECTED [facility] Last Admin: 06/28/17 08:00 Dose: 100 mls/hr Promethazine HCl 12.5 mg/ (Sodium Chloride) 50.5 mls @ 100 mls/hr IV Q6H PRN PRN Reason: Nausea/Vomiting Azithromycin 250 mg/ Sodium (Chloride) 250 mls @ 250 mls/hr IV Q24H [facility] Last Admin: 06/27/17 10:36 Dose: 250 mls/hr Isosorbide Mononitrate (Imdur) 30 mg PO BID [facility] Last Admin: 06/27/17 20:48 Dose: 30 mg Lorazepam (Ativan) 0.5 mg IV Q6H PRN PRN Reason: Anxiety Losartan Potassium (Cozaar) 50 mg PO DAILY [facility] Last Admin: 06/27/17 11:13 Dose: 50 mg Magnesium Sulfate (Pharmacy To Dose - Magnesium Replacement) 0 dose .XX ASDIRECTED PRN PRN Reason: RX TO WATCH MAG LEVELS Methylprednisolone Sodium Succinate (Solu-Medrol) 60 mg IVPUSH Q8H [facility] Last Admin: 06/28/17 01:39 Dose: 60 mg Metoprolol Tartrate (Lopressor) 5 mg IVPUSH Q4H PRN PRN Reason: Tachycardia Mirtazapine (Remeron) 15 mg PO DAILY [facility] Last Admin: 06/27/17 11:12 Dose: 15 mg Morphine Sulfate (Morphine) 0.25 mg IVPUSH Q4H PRN PRN Reason: Dyspnea Multivitamins (Thera) 1 each PO DAILY [facility] Last Admin: 06/27/17 11:11 Dose: 1 each Ondansetron HCl (Zofran) 4 mg IV Q6H PRN PRN Reason: Nausea/Vomiting Pantoprazole Sodium (Protonix) 40 mg PO DAILY@0700 [facility] Last Admin: 06/28/17 06:28 Dose: 40 mg Polyethylene Glycol (Miralax) 17 gm PO DAILY PRN PRN Reason: Constipation Polyethylene Glycol (Miralax) 8.5 gm PO DAILY [facility] Last Admin: 06/27/17 11:14 Dose: 8.5 gm Potassium Chloride (Pharmacy To Dose - Potassium Replacement) 0 dose .XX ASDIRECTED PRN PRN Reason: RX TO WATCH K LEVELS Senna/Docusate Sodium (Senna Plus) 1 tab PO BID PRN PRN Reason: Constipation Simvastatin (Zocor) 10 mg PO BEDTIME [facility] Last Admin: 06/27/17 20:48 Dose: 10 mg Temazepam (Restoril) 7.5 mg PO BEDTIME PRN PRN Reason: Sleep Vit A/Vit C/Vit E/Selen/Cu/Zn/Lutei (Icaps Mv) 1 tab PO DAILY [facility] Last Admin: 06/27/17 11:11 Dose: 1 tab Discontinued Medications Aspirin (Aspirin) 324 mg PO ONETIME STA Stop: 06/26/17 22:04 Last Admin: 06/26/17 22:28 Dose: 324 mg Enoxaparin Sodium (Lovenox) 60 mg SUBCUT ONETIME ONE Stop: 06/26/17 22:04 Last Admin: 06/26/17 22:29 Dose: 60 mg Guaifenesin (Mucinex) 1,200 mg PO ONETIME ONE Stop: 06/27/17 13:05 Last Admin: 06/27/17 14:20 Dose: 1,200 mg Azithromycin 250 mg/ Sodium (Chloride) 250 mls @ 250 mls/hr IV ONETIME ONE Stop: 06/27/17 01:26 Last Admin: 06/27/17 02:44 Dose: Not Given Azithromycin 250 mg/ Sodium (Chloride) 250 mls @ 250 mls/hr IV Q24H [facility] Last Admin: 06/27/17 10:29 Dose: Not Given Azithromycin 250 mg/ Sodium (Chloride) 125 mls @ 125 mls/hr IV ONETIME ONE Stop: 06/27/17 02:29 Last Admin: 06/27/17 02:40 Dose: 125 mls/hr Isosorbide Mononitrate (Imdur) 30 mg PO DAILY [facility] Magnesium Oxide (Magnesium Oxide) 400 mg PO WITHLUNCH ONE Stop: 06/27/17 11:01 Last Admin: 06/27/17 11:11 Dose: 400 mg Methylprednisolone Sodium Succinate (Solu-Medrol) 40 mg IVPUSH ONETIME ONE Stop: 06/27/17 00:27 Last Admin: 06/27/17 00:50 Dose: Not Given Metoprolol Tartrate (Lopressor) 5 mg IVPUSH ONETIME ONE Stop: 06/26/17 22:05 Last Admin: 06/26/17 22:28 Dose: 5 mg Regadenoson (Lexiscan) 0.4 mg IVPUSH ONETIME ONE Stop: 06/27/17 08:15 Last Admin: 06/27/17 08:32 Dose: 0.4 mg Sodium Chloride (Saline Flush) 10 ml FLUSH ONETIME [facility] Stop: 06/27/17 10:00 Last Admin: 06/27/17 08:33 Dose: 10 ml - Exam Quality Assessment: Reports: Supplemental Oxygen General: Reports: Alert, Oriented, Cooperative, No Acute Distress HEENT: Reports: Pupils Equal, Pupils Reactive, EOMI, Mucous Membr. Moist/[place] Neck: Reports: Supple, Trachea Midline, No JVD Lungs: Reports: Normal Respiratory Effort, Decreased Breath Sounds, Rhonchi Cardiovascular: Reports: Regular Rate, Regular Rhythm GI/Abdominal Exam: Normal Bowel Sounds, Soft, Non-Tender, No Organomegaly, No Distention, No Abnormal Bruit, No Mass (Female) Exam: Deferred Rectal (Female) Exam: Deferred Back Exam: Reports: Normal Inspection, Decreased Range of Motion Extremities: Normal Inspection, Normal Range of Motion, Non-Tender, No Pedal Edema, Normal Capillary Refill Skin: Reports: Warm, Dry, Intact Neurological: Reports: No New Focal Deficit Psy/Mental Status: Reports: Alert, Normal Affect, Normal Mood
[2017-06-28] MEDS: Azithromycin 250 MG in Sodium Chloride 0.9% 250 ML IV SCH (09:29)
[2017-06-28] MEDS: Mirtazapine 15 MG Tab PO SCH (09:36)
[2017-06-28] MEDS: Carvedilol 12.5 MG Tab PO SCH (09:36)
[2017-06-28] MEDS: Aspirin 81 MG Tab.EC PO SCH (09:37)
[2017-06-28] MEDS: Calcium Carbonate/Vitamin D3 1500 MG-200 Units Tab PO SCH (09:37)
[2017-06-28] MEDS: Multivitamins,Therapeutic Tab PO SCH (09:37)
[2017-06-28] MEDS: Multivitamins with Minerals/Folic Acid/Lutein/Zeaxanth Tab PO SCH (09:37)
[2017-06-28] MEDS: Losartan 25 MG Tab PO SCH (09:37)
[2017-06-28] MEDS: amLODIPine 5 MG Tab PO SCH (09:38)
[2017-06-28] MEDS: Polyethylene Glycol 3350 Powder 17 GM Packet PO SCH (09:38)
[2017-06-28] MEDS: Isosorbide Mononitrate 30 MG Tab.ER PO SCH (09:38)
[2017-06-28 12:09] VITALS: BP 135/78
--- NOTE | 2017-06-28 13:03 | STRESS ---
REQUESTING PHYSICIAN: DATE: 06/27/2017 ORDERING PROVIDER: Dr. Rosas Ann. PROCEDURE: Lexiscan stress test. INDICATION: Dyspnea and angina. BASELINE EKG: Normal sinus rhythm, ventricular rate 85 beats per minute. Q-waves noted in leads II, aVF, V5 and V6. PROTOCOL: Lexiscan. Max heart rate 116 beats per minute. Peak blood pressure 182/85. Total test time 6 minutes. METS 1.0. REASON FOR STOPPING TEST: Completion of Lexiscan test. During testing and recovery, the patient did experience worsening shortness of breath sensation accompanied by mild wheezing. She did have heaviness in her chest and mild nausea. There were no ST or T-wave changes consistent with ischemia or consistent to meet criteria for positive testing. No arrhythmias were noted. IMPRESSION: 1. Electrographically-negative Lexiscan test for ischemia. 2. Normal blood pressure response to stress. 3. Nuclear imaging results pending and will be reported separately per radiologist. MMODAL /[id number]
== END 2017-06-28 13:41 | disposition home or self-care (01) | DRG 303 ==
LOC: JD.ED 19:26 → JD.MS 23:56
PROVIDERS: ADMIT Internal Medicine; ATTEND Internal Medicine
DX: I25.118 Atherosclerotic heart disease of native coronary artery with other forms of angina pectoris (principal); I24.9 Acute ischemic heart disease, unspecified; J96.10 Chronic respiratory failure, unspecified whether with hypoxia or hypercapnia; K44.9 Diaphragmatic hernia without obstruction or gangrene; R00.0 Tachycardia, unspecified; I11.0 Hypertensive heart disease with heart failure; I50.9 Heart failure, unspecified; E78.5 Hyperlipidemia, unspecified; J98.4 Other disorders of lung; J84.10 Pulmonary fibrosis, unspecified; J44.9 Chronic obstructive pulmonary disease, unspecified; E03.9 Hypothyroidism, unspecified; R32 Unspecified urinary incontinence; F32.9 Major depressive disorder, single episode, unspecified; Z66 Do not resuscitate; Z99.81 Dependence on supplemental oxygen; Z79.82 Long term (current) use of aspirin; Z79.51 Long term (current) use of inhaled steroids; Z79.899 Other long term (current) drug therapy
CPT/HCPCS: 36415; 36600; 71020; 71020-26; 71275; 71275-26; 78452; 78452-26; 80048; 80053; 80061; 82553; 82803; 83605; 83735; 83880; 84439; 84443; 84484; 85025; 85379; 85610; 85730; 87040; 93005; 93017; 94640-76; 94664; 94667; 94761; 96361; 96372; 96374; 97110-GP; 97116-GP; 97162-GP; 97165-GO; 99285; 99285-25; A9270-GY; A9500; J0456; J1650; J2785; J2920; J3490; J7030; J7040; J7050; Q9967

== ENCOUNTER 2019-06-22 16:55 | Emergency (ER) | payer MEDICARE, OTHER ==
[2019-06-22] MEDS ORDERED: Albuterol/Ipratropium 3.0-0.5 MG/3 ML Neb Soln NEB ONE (18:21)
[2019-06-22] MEDS ORDERED: Sodium Chloride 0.9% 10 ML Syringe FLUSH PRN (18:21)
--- NOTE | 2019-06-22 19:48 | EDM.PDOC ---
ED HPI GENERAL MEDICAL PROBLEM - General Chief Complaint: Respiratory Problem Stated Complaint: SOB Time Seen by Provider: 06/22/19 18:15 Source of Information: Reports: Patient History Limitations: Reports: No Limitations - History of Present Illness INITIAL COMMENTS - FREE TEXT/NARRATIVE: 83-year-old female presents for evaluation and treatment shortness of breath. Patient has a history of COPD and is on 2 L at all times. Upon arrival here she is on 2 L and satting 80%. She states that she turned her concentrator up to 5 L today. She reports shortness breath, worsen normal. She states that she felt diaphoretic earlier, chills and has been feeling very fatigued. She denies any chest pain, nausea, vomiting, fevers or any abdominal pain. - Related Data Allergies Allergy/AdvReac Type Severity Reaction Status Date / Time No Known Allergies Allergy Verified 06/22/19 17:51 Home Meds: Home Meds Aspirin [Adult Low Dose Aspirin EC] 81 mg PO DAILY 03/03/14 [History] Calcium Carbonate/Vitamin D3 [Calcium 500 + Vit D 400] 1 each PO DAILY 03/03/14 [History] Carvedilol [Coreg] 25 mg PO BID 03/03/14 [History] Furosemide [Lasix] 40 mg PO DAILY 03/03/14 [History] Lutein/Minerals/Vit A,C & E [Ocuvite] 1 tab PO DAILY 03/03/14 [History] Multivitamin [Multi-Vitamin Daily] 1 each PO DAILY 03/03/14 [History] atorvaSTATin [Lipitor] 10 mg PO BEDTIME 03/03/14 [History] Ascorbate Calcium/Bioflavonoid [Esme-C 500 MG] 1 each PO DAILY 06/06/14 [ History] Mirtazapine 15 mg PO DAILY 06/06/14 [History] Pantoprazole [ProTONIX Granules] 40 mg PO DAILY 06/06/14 [History] Polyethylene Glycol 3350 [MiraLAX] 8.5 gm PO DAILY 06/06/14 [History] Fluticasone/Salmeterol [Advair 500-50] 1 puff INH BID #2 diskus 06/10/14 [Rx] Albuterol Sulfate 2.5 mg NEB ASDIRECTED PRN 01/24/15 [History] Denosumab [Prolia] 60 mg INJECT ASDIRECTED 06/28/17 [History] Isosorbide Mononitrate [Imdur] 30 mg PO BID #60 tab.er 06/28/17 [Rx] Losartan Potassium 50 mg PO DAILY #0 06/28/17 [Rx] Tiotropium [place] [Spiriva Respimat] 2.5 mcg INH DAILY 06/28/17 [History] amLODIPine Besylate [Norvasc] 2.5 mg PO DAILY #30 tablet 06/28/17 [Rx] Past Medical History HEENT History: Reports: Impaired Vision Other HEENT History: glasses Cardiovascular History: Reports: Heart Failure, High Cholesterol, Hypertension Respiratory History: Reports: COPD Genitourinary History: Reports: Urinary Incontinence 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: Musculoskeletal History: Reports: Fracture Psychiatric History: Reports: Depression Endocrine/Metabolic History: Reports: Hypothyroidism - Past Surgical History HEENT Surgical History: Reports: Cataract Surgery, Tonsillectomy GI Surgical History: Reports: Appendectomy Social & Family History - Tobacco Use Smoking Status *Q: Never Smoker Second Hand Smoke Exposure: No - Caffeine Use Caffeine Use: Reports: Coffee - Recreational Drug Use Recreational Drug Use: No - Living Situation & Occupation Living situation: Reports: , Alone Occupation: Retired ED ROS GENERAL - Review of Systems Review Of Systems: See Below Constitutional: Reports: Chills, Fatigue, Diaphoresis. Denies: Fever Respiratory: Reports: Shortness of Breath Cardiovascular: Denies: Chest Pain GI/Abdominal: Denies: Abdominal Pain, Nausea, Vomiting ED EXAM, GENERAL - Physical Exam Exam: See Below Exam Limited By: No Limitations General Appearance: Alert, WD/WN, No Apparent Distress Ears: Normal External Exam Nose: Normal Inspection Throat/Mouth: Normal Inspection, Normal Lips, Normal Voice, No Airway Compromise Respiratory/Chest: No Respiratory Distress, Wheezing Cardiovascular: Normal Peripheral Pulses, Regular Rate, Rhythm, No Murmur Neurological: Alert, Oriented, Normal Cognition Psychiatric: Normal Affect, Normal Mood Skin Exam: Warm, Dry, Normal Color EKG INTERPRETATION EKG Date: 06/22/19 Time: 18:26 Rhythm: NSR Rate (Beats/Min): 62 [place]: Normal P-Wave: Present QRS: Normal ST-T: Depressed (V4-V6) QT: Normal Comparison: No Change EKG Interpretation Comments: NSR at 62 bpm. Q waves V, V2 and III. Slight St depression in V4- V6. Reviewed by myself and Dr. Dominguez. Course - Vital Signs Last Recorded V/S: Last Vital Signs Temp 97.6 F 06/22/19 17:50 Pulse 79 06/22/19 20:59 Resp 20 06/22/19 17:50 BP 194/103 H 06/22/19 20:59 Pulse Ox 98 06/22/19 18:37 - Orders/Labs/Meds Labs: Laboratory Tests 06/22/19 06/22/19 06/22/19 Range/Units 18:48 18:48 18:48 WBC 9.24 (3.98-10.04) K/mm3 RBC 4.71 (3.98-5.22) M/mm3 Hgb 13.5 D (11.2-15.7) gm/L Hct 43.2 (34.1-44.9) % MCV 91.7 (79.4-94.8) fl MCH 28.7 (25.6-32.2) pg MCHC 31.3 L (32.2-35.5) g/dl RDW Std Deviation 46.6 H (36.4-46.3) fL Plt Count 320 (182-369) K/mm3 MPV 9.3 L (9.4-12.3) fl Neutrophils % (Manual) 69 H (40-60) % Band Neutrophils % 0 (0-10) % Lymphocytes % (Manual) 19 L (20-40) % Atypical Lymphs % 0 % Monocytes % (Manual) 10 (2-10) % Eosinophils % (Manual) 0 L (0.7-5.8) % Basophils % (Manual) 2 H (0.1-1.2) Platelet Estimate Adequate Plt Morphology Comment Normal RBC Morph Comment Normal Sodium 139 (136-145) mEq/L Potassium 3.9 (3.5-5.1) mEq/L Chloride 99 (98-107) mEq/L Carbon Dioxide 35 H (21-32) mEq/L Anion Gap 8.9 (5-15) BUN 14 (7-18) mg/dL Creatinine 0.9 (0.55-1.02) mg/dL Est Cr Clr Drug Dosing 32.83 mL/min Estimated GFR (MDRD) 60 (>60) mL/min BUN/Creatinine Ratio 15.6 (14-18) Glucose 105 (83-115) mg/dL Lactic Acid (0.4-2.0) mmol/L Calcium 9.6 (8.5-10.1) mg/dL Total Bilirubin 0.5 (0.2-1.0) mg/dL AST 27 (15-37) U/L ALT 24 (14-59) U/L Alkaline Phosphatase 89 (46-116) U/L Troponin I 0.339 H* (0.00-0.056) ng/mL C-Reactive Protein < 0.2 (<1.0) mg/dL NT-Pro-B Natriuret Pep 1330 H (0-450) pg/mL Total Protein 6.8 (6.4-8.2) g/dl Albumin 3.3 L (3.4-5.0) g/dl Globulin 3.5 gm/dL Albumin/Globulin Ratio 0.9 L (1-2) 06/22/19 06/22/19 Range/Units 18:48 20:30 WBC (3.98-10.04) K/mm3 RBC (3.98-5.22) M/mm3 Hgb (11.2-15.7) gm/L Hct (34.1-44.9) % MCV (79.4-94.8) fl MCH (25.6-32.2) pg MCHC (32.2-35.5) g/dl RDW Std Deviation (36.4-46.3) fL Plt Count (182-369) K/mm3 MPV (9.4-12.3) fl Neutrophils % (Manual) (40-60) % Band Neutrophils % (0-10) % Lymphocytes % (Manual) (20-40) % Atypical Lymphs % % Monocytes % (Manual) (2-10) % Eosinophils % (Manual) (0.7-5.8) % Basophils % (Manual) (0.1-1.2) Platelet Estimate Plt Morphology Comment RBC Morph Comment Sodium (136-145) mEq/L Potassium (3.5-5.1) mEq/L Chloride (98-107) mEq/L Carbon Dioxide (21-32) mEq/L Anion Gap (5-15) BUN (7-18) mg/dL Creatinine (0.55-1.02) mg/dL Est Cr Clr Drug Dosing mL/min Estimated GFR (MDRD) (>60) mL/min BUN/Creatinine Ratio (14-18) Glucose (83-115) mg/dL Lactic Acid 0.8 (0.4-2.0) mmol/L Calcium (8.5-10.1) mg/dL Total Bilirubin (0.2-1.0) mg/dL AST (15-37) U/L ALT (14-59) U/L Alkaline Phosphatase (46-116) U/L Troponin I 0.323 H* (0.00-0.056) ng/mL C-Reactive Protein (<1.0) mg/dL NT-Pro-B Natriuret Pep (0-450) pg/mL Total Protein (6.4-8.2) g/dl Albumin (3.4-5.0) g/dl Globulin gm/dL Albumin/Globulin Ratio (1-2) Meds: Medications Discontinued Medications Generic Name Dose Route Start Last Admin Trade Name Freq PRN Reason Stop Dose Admin Albuterol/Ipratropium 3 ml 06/22/19 18:21 06/22/19 18:35 Duoneb 3.0-0.5 Mg/3 Ml NEB 06/22/19 18:22 3 ml ONETIME ONE Administration Metoprolol Tartrate 5 mg 06/22/19 20:24 06/22/19 20:59 Lopressor IVPUSH 06/22/19 20:25 5 mg ONETIME ONE Administration Sodium Chloride 10 ml 06/22/19 18:21 06/22/19 20:07 Saline Flush FLUSH 10 ml ASDIRECTED PRN Administration Keep Vein Open - Radiology Interpretation Free Text/Narrative:: chest xray shows no acute intrathoracic process - Re-Assessments/Exams Free Text/Narrative Re-Assessment/Exam: 06/22/19 20:23 reviewed the labs, ekg and imaging with the patient. she is very anxious to go. I suspect the top is from a trop leak and not an acute TN. She is agreeable to repeating this . 06/22/19 21:05 repeat trop returned essentially unchanged. Patient would like to go home. I will discharge her home at this time. Discharge instructions as documented.d Departure - Departure Time of Disposition: 21:00 Disposition: Home, Self-Care 01 Condition: Fair Clinical Impression: COLD, Chronic obstructive lung disease, Elevated troponin - Discharge Information *PRESCRIPTION DRUG MONITORING PROGRAM REVIEWED*: No *COPY OF PRESCRIPTION DRUG MONITORING REPORT IN PATIENT GRETCHEN: No Instructions: Chronic Obstructive Pulmonary Disease, [id number] Referrals: PCP,Not In Area [Primary Care Provider] - Forms: ED Department Discharge Additional Instructions: Follow-up with PCP this week for a recheck of your symptoms. Continue with current medications and plan of care. Please return to the ER should your symptoms change or worsen.
[2019-06-22] MEDS ORDERED: Metoprolol Tartrate 5 MG/5 ML SDV IVPUSH ONE (20:24)
[2019-06-22 21:04] VITALS: BP 194/103; PULSE 79
--- NOTE | 2019-06-24 08:20 | CR ---
Chest: Two views of the chest were obtained. Comparison: Prior chest x-ray of 06/26/17. Moderately large hiatal hernia is noted. This is similar to prior chest x-ray. Heart size at the upper limits of normal. Tortuous thoracic aorta is seen. Several old healed right-sided rib fractures as well as left-sided rib fracture is noted. Lungs show no acute parenchymal change. Impression: 1. Stable findings as described above. Nothing acute is appreciated. Diagnostic code #2 MTDD
== END 2019-06-22 21:34 | disposition home or self-care (01) ==
LOC: JD.ED 16:55
DX: J44.9 Chronic obstructive pulmonary disease, unspecified (principal); R79.89 Other specified abnormal findings of blood chemistry; I11.0 Hypertensive heart disease with heart failure; I50.9 Heart failure, unspecified; Z98.49 Cataract extraction status, unspecified eye; Z98.890 Other specified postprocedural states; Z90.49 Acquired absence of other specified parts of digestive tract; Z79.82 Long term (current) use of aspirin
CPT/HCPCS: 36415; 71046; 80053; 83605; 83880; 84484; 85007; 85027; 86140; 87040; 93005; 94640; 96374; 99285; J3490; 93010; 99283; J7620-GY

== ENCOUNTER 2021-02-27 19:04 | Emergency (ER) | payer MEDICARE, OTHER ==
[2021-02-27] MEDS ORDERED: Sodium Chloride 0.9% 10 ML Syringe FLUSH PRN (19:28)
--- NOTE | 2021-02-27 19:34 | EDM.PDOC ---
ED HPI GENERAL MEDICAL PROBLEM - General Chief Complaint: Respiratory Problem Stated Complaint: sob oxy levels not good Time Seen by Provider: 02/27/21 19:13 Source of Information: Reports: Patient History Limitations: Reports: No Limitations - History of Present Illness INITIAL COMMENTS - FREE TEXT/NARRATIVE: 85-year-old female with a history of COPD presents the emergency department for 2-day history of progressive shortness of breath. She states she normally wears oxygen at 2 L per nasal cannula at home however the last couple of days she has been wearing 3 to 4 L due to increased shortness of breath. She denies any recent fever, nausea, vomiting, diarrhea or cough. She states that she has been more chilled over the last couple of days. She states she does take a water pill and it does still make her diarrhea is however she states her ankles have been more swollen over the past couple of days as well. She denies any chest pain or pressure or diaphoresis associated with the shortness of breath. - Related Data Allergies Allergy/AdvReac Type Severity Reaction Status Date / Time No Known Allergies Allergy Verified 02/27/21 19:16 Home Meds: Home Meds atorvaSTATin [Lipitor] 10 mg PO BEDTIME 03/03/14 [History] carvediloL [Coreg] 25 mg PO BID 03/03/14 [History] Mirtazapine 15 mg PO DAILY 06/06/14 [History] Pantoprazole [ProTONIX Granules] 40 mg PO DAILY 06/06/14 [History] polyethylene glycoL 3350 [MiraLAX] 8.5 gm PO DAILY 06/06/14 [History] Fluticasone/Salmeterol [Advair 500-50] 1 puff INH BID #2 diskus 06/10/14 [Rx] Fluticasone Propion/Salmeterol [Fluticasone-Salmeterol 500-50] 2 puff INH BID 02/27/21 [History] Incruse Ellip/Act 62.5 Mcg Inh 1 puff INH DAILY 02/27/21 [History] Isosorbide Mononitrate [Imdur] 30 mg PO DAILY 02/27/21 [History] Levothyroxine Sodium [Synthroid] 25 mcg PO DAILY 02/27/21 [History] Losartan Potassium 25 mg PO DAILY 02/27/21 [History] Past Medical History HEENT History: Reports: Impaired Vision Other HEENT History: glasses Cardiovascular History: Reports: Heart Failure, High Cholesterol, Hypertension Respiratory History: Reports: COPD Genitourinary History: Reports: Urinary Incontinence [employer] History: Reports: Musculoskeletal History: Reports: Fracture Psychiatric History: Reports: Depression Endocrine/Metabolic History: Reports: Hypothyroidism - Past Surgical History HEENT Surgical History: Reports: Cataract Surgery, Tonsillectomy GI Surgical History: Reports: Appendectomy Social & Family History - Tobacco Use Tobacco Use Status *Q: Former Tobacco User Used Tobacco, but Quit: Yes Month/Year Tobacco Last Used: 2004 - Caffeine Use Caffeine Use: Reports: Coffee - Recreational Drug Use Recreational Drug Use: No - Living Situation & Occupation Living situation: Reports: , Alone Occupation: Retired ED ROS GENERAL - Review of Systems Review Of Systems: See Below Constitutional: Reports: Chills, Fatigue. Denies: Fever, Diaphoresis HEENT: Reports: No Symptoms Respiratory: Reports: Shortness of Breath. Denies: Pleuritic Chest Pain, Cough, Sputum Cardiovascular: Reports: Dyspnea on Exertion, Edema, Orthopnea. Denies: Chest Pain, Palpitations Endocrine: Reports: No Symptoms GI/Abdominal: Reports: No Symptoms. Denies: Abdominal Pain, Constipation, Diarrhea, Nausea, Vomiting : Reports: No Symptoms Musculoskeletal: Reports: No Symptoms Skin: Reports: No Symptoms Neurological: Reports: No Symptoms Psychiatric: Reports: No Symptoms Hematologic/Lymphatic: Reports: No Symptoms Immunologic: Reports: No Symptoms ED EXAM, GENERAL - Physical Exam Exam: See Below Exam Limited By: No Limitations General Appearance: Alert, WD/WN, Mild Distress Ears: Normal External Exam. No: Hearing Grossly Normal (slightly hard of hearing) Nose: Normal Inspection Throat/Mouth: Normal Inspection, Normal Lips, Normal Voice, No Airway Compromise Head: Atraumatic, Normocephalic Neck: Normal Inspection, Supple Respiratory/Chest: No Accessory Muscle Use, Chest Non-Tender, Crackles (bilateral bases). No: Lungs Clear, Normal Breath Sounds Cardiovascular: Normal Peripheral Pulses, Regular Rate, Rhythm, Diastolic Murmur. No: No Edema (1+ pitting edema) Peripheral Pulses: 2+: Radial (L), Radial (R) GI/Abdominal: Normal Bowel Sounds, Soft, Non-Tender, No Distention (Female) Exam: Deferred Rectal (Female) Exam: Deferred Back Exam: Normal Inspection, Full Range of Motion Extremities: Normal Inspection, Normal Range of Motion, Non-Tender, Normal Capillary Refill, Pedal Edema (1+ pitting) Neurological: Alert, Oriented, Normal Cognition Psychiatric: Normal Affect, Normal Mood Skin Exam: Warm, Dry, Intact, No Rash, Pallor Lymphatic: No Adenopathy #1 Interpretation EKG Date: 02/27/21 Time: 19:41 Rhythm: NSR Rate (Beats/Min): 81 [place]: Normal P-Wave: Present QRS: Normal ST-T: Normal QT: Normal EKG Interpretation Comments: Per Dr Mercado interpretation: NSR; LAE; no AVB; no ischemic changes-late transition; +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 I have ordered labs, EKG, chest x-ray. Last Recorded V/S: Last Vital Signs Temp 97.9 F 02/27/21 19:12 Pulse 93 02/27/21 19:12 Resp 30 H 02/27/21 19:12 BP 148/77 H 02/27/21 19:12 Pulse Ox 90 L 02/27/21 19:12 - Orders/Labs/Meds Orders: Active Orders 24 hr Category Date Time Status EKG Documentation Completion [RC] STAT Care 02/27/21 19:28 Active Chest 1V Frontal [CR] Stat Exams 02/27/21 19:28 Taken CULTURE URINE [RM] Stat Lab 02/27/21 20:15 Received Sodium Chloride 0.9% [Saline Flush] Med 02/27/21 19:28 Active 10 ml FLUSH ASDIRECTED PRN Saline Lock Insert [OM.PC] Stat Oth 02/27/21 19:28 Ordered Medication Orders Sodium Chloride (Sodium Chloride 0.9% 10 Ml Syringe) 10 ml FLUSH ASDIRECTED PRN PRN Reason: Keep Vein Open Last Admin: 02/27/21 19:31 Dose: 10 ml Documented by: ERICA Labs: Laboratory Tests 02/27/21 02/27/21 02/27/21 Range/Units 19:20 19:20 19:20 WBC 8.68 (3.98-10.04) K/mm3 RBC 4.01 (3.98-5.22) M/mm3 Hgb 11.3 D (11.2-15.7) gm/dl Hct 38.4 (34.1-44.9) % MCV 95.8 H D (79.4-94.8) fl MCH 28.2 (25.6-32.2) pg MCHC 29.4 L (32.2-35.5) g/dl RDW Std Deviation 47.6 H (36.4-46.3) fL Plt Count 390 H (182-369) K/mm3 MPV 8.9 L (9.4-12.3) fl Neut % (Auto) 69.1 (34.0-71.1) % Lymph % (Auto) 13.1 L (19.3-51.7) % [place] % (Auto) 9.8 (4.7-12.5) % Eos % (Auto) 3.0 (0.7-5.8) Baso % (Auto) 0.3 (0.1-1.2) % Neut # (Auto) 5.99 (1.56-6.13) K/mm3 Lymph # (Auto) 1.14 L (1.18-3.74) K/mm3 [place] # (Auto) 0.85 H (0.24-0.36) K/mm3 Eos # (Auto) 0.26 (0.04-0.36) K/mm3 Baso # (Auto) 0.03 (0.01-0.08) K/mm3 Manual Slide Review Abnormal smear Sodium 144 (136-145) mEq/L Potassium 4.7 (3.5-5.1) mEq/L Chloride 104 (98-107) mEq/L Carbon Dioxide 36 H (21-32) mEq/L Anion Gap 8.7 (5-15) BUN 16 (7-18) mg/dL Creatinine 1.1 H (0.55-1.02) mg/dL Est Cr Clr Drug Dosing 25.88 mL/min Estimated GFR (MDRD) 47 (>60) mL/min BUN/Creatinine Ratio 14.5 (14-18) Glucose 132 H (83-115) mg/dL Calcium 9.3 (8.5-10.1) mg/dL Magnesium 2.4 (1.8-2.4) mg/dl Total Bilirubin 0.3 (0.2-1.0) mg/dL AST 26 (15-37) U/L ALT 19 (14-59) U/L Alkaline Phosphatase 99 (46-116) U/L Troponin I 0.182 H* (0.00-0.056) ng/mL C-Reactive Protein 4.1 H* (<1.0) mg/dL NT-Pro-B Natriuret Pep 1008 H (0-450) pg/mL Total Protein 6.4 (6.4-8.2) g/dl Albumin 2.5 L (3.4-5.0) g/dl Globulin 3.9 gm/dL Albumin/Globulin Ratio 0.6 L (1-2) Urine Color (Yellow) Urine Appearance (Clear) Urine pH (5.0-8.0) Ur Specific [place] (1.005-1.030) Urine Protein (Negative) Urine Glucose (UA) (Negative) Urine Ketones (Negative) Urine Occult Blood (Negative) Urine Nitrite (Negative) Urine Bilirubin (Negative) Urine Urobilinogen (0.2-1.0) Ur Leukocyte Esterase (Negative) Urine RBC (0-5) /hpf Urine WBC (0-5) /hpf Ur Squamous Epith Cells (0-5) /hpf Urine Bacteria (FEW) /hpf Urine Mucus (FEW) /hpf Influenza Type A RNA (NEGATIVE) Influenza Type B RNA (NEGATIVE) SARS-CoV-2 RNA (KEHINDE) (NEGATIVE) 02/27/21 02/27/21 Range/Units 20:15 21:22 WBC (3.98-10.04) K/mm3 RBC (3.98-5.22) M/mm3 Hgb (11.2-15.7) gm/dl Hct (34.1-44.9) % MCV (79.4-94.8) fl MCH (25.6-32.2) pg MCHC (32.2-35.5) g/dl RDW Std Deviation (36.4-46.3) fL Plt Count (182-369) K/mm3 MPV (9.4-12.3) fl Neut % (Auto) (34.0-71.1) % Lymph % (Auto) (19.3-51.7) % [place] % (Auto) (4.7-12.5) % Eos % (Auto) (0.7-5.8) Baso % (Auto) (0.1-1.2) % Neut # (Auto) (1.56-6.13) K/mm3 Lymph # (Auto) (1.18-3.74) K/mm3 [place] # (Auto) (0.24-0.36) K/mm3 Eos # (Auto) (0.04-0.36) K/mm3 Baso # (Auto) (0.01-0.08) K/mm3 Manual Slide Review Sodium (136-145) mEq/L Potassium (3.5-5.1) mEq/L Chloride (98-107) mEq/L Carbon Dioxide (21-32) mEq/L Anion Gap (5-15) BUN (7-18) mg/dL Creatinine (0.55-1.02) mg/dL Est Cr Clr Drug Dosing mL/min Estimated GFR (MDRD) (>60) mL/min BUN/Creatinine Ratio (14-18) Glucose (83-115) mg/dL Calcium (8.5-10.1) mg/dL Magnesium (1.8-2.4) mg/dl Total Bilirubin (0.2-1.0) mg/dL AST (15-37) U/L ALT (14-59) U/L Alkaline Phosphatase (46-116) U/L Troponin I (0.00-0.056) ng/mL C-Reactive Protein (<1.0) mg/dL NT-Pro-B Natriuret Pep (0-450) pg/mL Total Protein (6.4-8.2) g/dl Albumin (3.4-5.0) g/dl Globulin gm/dL Albumin/Globulin Ratio (1-2) Urine Color Yellow (Yellow) Urine Appearance Slt cloudy H (Clear) Urine pH 7.5 (5.0-8.0) Ur Specific [place] 1.020 (1.005-1.030) Urine Protein 1+ H (Negative) Urine Glucose (UA) Negative (Negative) Urine Ketones Negative (Negative) Urine Occult Blood Negative (Negative) Urine Nitrite Negative (Negative) Urine Bilirubin Negative (Negative) Urine Urobilinogen 2.0 H (0.2-1.0) Ur Leukocyte Esterase 1+ H (Negative) Urine RBC 0-5 (0-5) /hpf Urine WBC 40-50 H (0-5) /hpf Ur Squamous Epith Cells 30-40 H (0-5) /hpf Urine Bacteria Moderate H (FEW) /hpf Urine Mucus Few (FEW) /hpf Influenza Type A RNA Negative (NEGATIVE) Influenza Type B RNA Negative (NEGATIVE) SARS-CoV-2 RNA (KEHINDE) Negative (NEGATIVE) Meds: Medications Generic Name Dose Route Start Last Admin Trade Name Freq PRN Reason Stop Dose Admin Sodium Chloride 10 ml 02/27/21 19:28 02/27/21 19:31 Sodium Chloride 0.9% 10 Ml Syringe FLUSH 10 ml ASDIRECTED PRN Administration Keep Vein Open Discontinued Medications Generic Name Dose Route Start Last Admin Trade Name Freq PRN Reason Stop Dose Admin Furosemide 40 mg 02/27/21 20:23 02/27/21 20:48 Furosemide 40 Mg/4 Ml Vial IVPUSH 02/27/21 20:24 40 mg NOW ONE Administration - Re-Assessments/Exams Free Text/Narrative Re-Assessment/Exam: 02/27/21 20:16 Hematology reveals a WBC of 8.68, hemoglobin 11.3, hematocrit 38.4, platelet count 390,000, chemistry reveals a sodium of 144, potassium of 4.7, chloride of 104 carbon carbon dioxide 36, BUN 16, creatinine 1.1, anion gap 8.7, glucose 132, magnesium 2.4, AST 26, ALT 19, alk phos 99, troponin 0 0.182, C-reactive protein 4.1, proBNP 1008 02/27/21 20:25 I discussed the lab results with the patient with her having an elevated troponin. She states that she would not want to be transferred to [place] for cardiology or any type of cardiac intervention. I will repeat the troponin 3 hours from initial lab draw. I have also ordered 40 mg lasix IV x 1 for the patient as she does have crackles noted in the bilateral bases. 02/27/21 21:06 Urinalysis reveals urine appearance slightly cloudy, 1+ urine protein, 2+ urobilinogen, 1+ leuk esterase, urine WBC 40-50, urine squamous epithelial cells 30-40, urine bacteria moderate, urine culture is pending. 02/27/21 21:16 [facility] radiologist impression: Cardiomegaly. Infiltrate at the left base. 1.3 cm nodule at the right base. Consider CT. I have ordered a covid swab on the patient as well as Influenza A and B. 02/27/21 21:47 I discussed this case with Dr. Mercado. Patient clinically does not have signs of pneumonia so I will not treat her with an antibiotic. She is diuresing well after the 40 mg of IV Lasix. Troponin elevation was elevated however patient does not want any type of cardiac intervention. 02/27/21 21:58 Patient has been up to the bedside commode several times to void since receiving the Lasix. She states her breathing feels much better. She is less labored and she notices much less shortness of breath. I discussed with her the fact that we probably do not need to repeat the troponin since she does not want any cardiac intervention. Patient is very agreeable to this and she again reiterates that she would not want further intervention. Will likely be discharged to home once we have results from the Covid and influenza swab. Patient is very much in agreement to this plan. 02/27/21 22:09 Serology reveals influenza a and B are negative, Covid screen is negative. Departure - Departure Time of Disposition: 22:09 Disposition: Home, Self-Care 01 Condition: Fair Clinical Impression: SOB (shortness of breath), CHF, Congestive heart failure, Elevated troponin CHF exacerbation Qualifiers: Heart failure type: unspecified Qualified Code(s): I50.9 - Heart failure, unspecified - Discharge Information Instructions: Shortness of Breath, Adult, [id number], Heart Failure, Self Care, [id number] Referrals: PCP,Not In Area [Primary Care Provider] - Forms: ED Department Discharge Additional Instructions: You were seen in the emergency department with complaints of increased shortness of breath over the last two days. Labs, EKG, and a chest xray was completed. You were given and extra dose of IV lasix in the emergency department and you did state that this helped your breathing and less shortness of breath was noted. Recommend that you take an extra 20 mg of lasix tomorrow and then follow up with your primary care physician, Dr. Granda early next week. Should your condition worsen or change, do not hesitate returning to the emergency department. Sepsis Event Note (ED) - Evaluation Sepsis Screening Result: No Definite Risk - Focused Exam Vital Signs: Vital Signs Temp Pulse Resp BP Pulse Ox 02/27/21 19:12 97.9 F 93 30 H 148/77 H 90 L - My Orders Last 24 Hours: My Active Orders 02/27/21 19:28 EKG Documentation Completion [RC] STAT Chest 1V Frontal [CR] Stat Sodium Chloride 0.9% [Saline Flush] 10 ml FLUSH ASDIRECTED PRN Saline Lock Insert [OM.PC] Stat 02/27/21 20:15 CULTURE URINE [RM] Stat - Assessment/Plan Last 24 Hours: My Active Orders 02/27/21 19:28 EKG Documentation Completion [RC] STAT Chest 1V Frontal [CR] Stat Sodium Chloride 0.9% [Saline Flush] 10 ml FLUSH ASDIRECTED PRN Saline Lock Insert [OM.PC] Stat 02/27/21 20:15 CULTURE URINE [RM] Stat
[2021-02-27] MEDS ORDERED: Furosemide 40 MG/4 ML VIAL IVPUSH ONE (20:23)
[2021-02-27 22:07] LABS: CORONAVIRUS COVID-19 NAA NEGATIVE (NEGATIVE)
[2021-02-27 22:41] VITALS: BP 168/92; PULSE 79
--- NOTE | 2021-02-28 09:30 | CR ---
Chest: Frontal view of the chest was obtained utilizing portable technique. Comparison: Prior chest x-ray of 06/22/[address] study of 06/26/17. Heart is enlarged. Slight parenchymal density within the left lung base is seen. Nodular density is noted within the right lung base measuring about 1 cm. Upper lungs are clear. Several old bilateral rib fractures are noted which appear healed. Osteopenia is present. Hiatal hernia is noted. Impression: 1. Slight parenchymal density within the left lung base, most likely representing small area of pneumonia or aspiration. 2. Nodule within the right lung base. This is not seen on prior study and noncontrast chest CT should be considered. 3. Other findings as noted above. Diagnostic code #9 I agree with preliminary report from [facility], finalized on 02/27/21, 9:45 PM CDT code 1
== END 2021-02-27 22:35 | disposition home or self-care (01) ==
LOC: JD.ED 19:04
DX: R06.02 Shortness of breath (principal); I11.0 Hypertensive heart disease with heart failure; I50.9 Heart failure, unspecified; R79.89 Other specified abnormal findings of blood chemistry; E78.00 Pure hypercholesterolemia, unspecified; E03.9 Hypothyroidism, unspecified; Z20.822 Contact with and (suspected) exposure to COVID-19; Z79.899 Other long term (current) drug therapy
CPT/HCPCS: 0240U; 36415; 71045; 80053; 81001; 83735; 83880; 84484; 85025; 86140; 87086; 93005; 96374; 99285; J1940; 93010; 99284

== ENCOUNTER 2021-08-22 16:21 | Emergency (ER) | payer MEDICARE, OTHER ==
--- NOTE | 2021-08-22 16:30 | EDM.PDOC ---
<Eyad Mcmahan - Last Filed: 08/23/21 06:57> ED HPI GENERAL MEDICAL PROBLEM - General Chief Complaint: Respiratory Problem Stated Complaint: [facility] Time Seen by Provider: 08/22/21 16:30 - Related Data Allergies Allergy/AdvReac Type Severity Reaction Status Date / Time No Known Allergies Allergy Verified 08/22/21 16:32 Home Meds: Home Meds atorvaSTATin [Lipitor] 10 mg PO BEDTIME 03/03/14 [History] carvediloL [Coreg] 25 mg PO BID 03/03/14 [History] Mirtazapine 15 mg PO DAILY 06/06/14 [History] Pantoprazole [ProTONIX Granules] 40 mg PO DAILY 06/06/14 [History] polyethylene glycoL 3350 [MiraLAX] 8.5 gm PO DAILY 06/06/14 [History] Fluticasone/Salmeterol [Advair 500-50] 1 puff INH BID #2 diskus 06/10/14 [Rx] Fluticasone Propion/Salmeterol [Fluticasone-Salmeterol 500-50] 2 puff INH BID 02/27/21 [History] Furosemide [Lasix] 40 mg PO DAILY 02/27/21 [History] Incruse Ellip/Act 62.5 Mcg Inh 1 puff INH DAILY 02/27/21 [History] Isosorbide Mononitrate [Imdur] 30 mg PO DAILY 02/27/21 [History] Levothyroxine Sodium [Synthroid] 25 mcg PO DAILY 02/27/21 [History] Losartan Potassium 25 mg PO DAILY 02/27/21 [History] Course - Re-Assessments/Exams Free Text/Narrative Re-Assessment/Exam: 08/23/21 22:17 Patient was reevaluated at bedside. Patient was able to be weaned down to 2 L nasal cannula. Saturating between 91 and 94%. She was sleeping comfortably when I entered the room and had a respiratory distress during our conversation. Patient states she feels better and does not want to be admitted to the hospital. We discussed findings on blood work and chest x-ray. Laboratory studies reviewed demonstrated elevated CO2 levels none blood gas but patient's pH within normal limits as patient has appropriate metabolic compensation. Is likely a chronic finding. Repeat blood gas demonstrates no significant changes despite interventions that have been performed in the emergency room. Patient not demonstrating any evidence of hypercapnia as she is demonstrating normal mentation. Labs were also significant for elevated BNP and mild elevation of troponin. Patient had numerous previous visits with troponin elevation in the similar range. Patient not complaining of any chest pain. Free Text/Narrative Re-Assessment/Exam: 08/23/21 23:20 Patient states she would like to go home to her apartment. Discussion was had with nurse Cady. She states the patient is able to perform basic tasks such as getting out of bed and going to the restroom without any sort of assistance. Patient likely had a COPD exacerbation which improved with steroids and nebulizer. In addition, patient may have a component of heart failure but again, she was able to be diuresed in the emergency room. 08/23/21 06:57 Patient remained stable overnight with no further respiratory symptoms. She received Lasix as well as steroids while in the emergency room. Patient still states she wants to go home and does not want to stay in the hospital. We have reached out and nursing staff is contacted patient's son who will come to the emergency room and bring her home to ensure for safe discharge. We discussed risks and benefits of not having inpatient hospital stay. Patient is comfortable with going home at this point she wants to be comfortable. Departure - Departure Disposition: Home, Self-Care 01 Clinical Impression: SOB (shortness of breath), COLD, Chronic obstructive lung disease, CHF, Congestive heart failure - Discharge Information Referrals: PCP,None [Primary Care Provider] - Forms: ED Department Discharge Additional Instructions: Return to the emergency room with any questions problems or worsening symptoms. Be sure and take your Lasix, or furosemide, daily as directed. Continue your home O2 between 2 L. Follow-up with your regular healthcare provider at the end of this week for recheck. <Brayden Godoy - Last Filed: 08/23/21 07:20> ED HPI GENERAL MEDICAL PROBLEM - History of Present Illness INITIAL COMMENTS - FREE TEXT/NARRATIVE: 85-year-old female brought in by EMS with increasing difficulty breathing. Patient was struggling to breathe. She has O2 dependent COPD. And some degree of heart failure. She has been in multiple times in this emergency department seems to improve with diuretics at times. She denies any chest pain. Patient states she became short of breath around 3:00 this afternoon. However she did not get up out of bed until shortly before this. So this is a little uncertain. The patient is usually on 2 L of oxygen when she has been here in the past she comes in on 4 L. She is a little confused. The patient is a DNR and does not want any heroics done. She does not want to be transferred out for more aggressive work-ups. Past Medical History HEENT History: Reports: Impaired Vision Other HEENT History: glasses Cardiovascular History: Reports: Heart Failure, High Cholesterol, Hypertension Respiratory History: Reports: COPD Genitourinary History: Reports: Urinary Incontinence REPLANTER History: Reports: Musculoskeletal History: Reports: Fracture Psychiatric History: Reports: Depression Endocrine/Metabolic History: Reports: Hypothyroidism - Past Surgical History HEENT Surgical History: Reports: Cataract Surgery, Tonsillectomy GI Surgical History: Reports: Appendectomy Social & Family History - Caffeine Use Caffeine Use: Reports: Coffee - Living Situation & Occupation Living situation: Reports: , Alone Occupation: Retired ED ROS GENERAL - Review of Systems Review Of Systems: See Below Constitutional: Reports: No Symptoms HEENT: Reports: No Symptoms Respiratory: Reports: Shortness of Breath Cardiovascular: Denies: Chest Pain Endocrine: Reports: No Symptoms GI/Abdominal: Reports: No Symptoms ED EXAM, GENERAL - Physical Exam Exam: See Below Exam Limited By: No Limitations General Appearance: Alert, Other (She seems a little confused) Eye Exam: Bilateral Eye: Normal Inspection Ears: Normal External Exam, Normal Canal, Hearing Grossly Normal, Normal TMs Ear Exam: Right Ear: Tenderness Nose: Normal Inspection, Normal Mucosa, No Blood Throat/Mouth: Normal Inspection, Normal Lips, Normal Gums, Normal Oropharynx, Normal Voice, No Airway Compromise Head: Atraumatic, Normocephalic Neck: Normal Inspection, Supple, Non-Tender, Full Range of Motion. No: Lymphadenopathy (L), Lymphadenopathy (R) Respiratory/Chest: No Respiratory Distress, Lungs Clear, Decreased Breath Sounds Cardiovascular: Regular Rate, Rhythm, No Edema, Systolic Murmur (Angelina best right upper sternal border) GI/Abdominal: Normal Bowel Sounds, Soft, Non-Tender Back Exam: Normal Inspection Extremities: Pedal Edema (Trace edema noted) Course - Vital Signs Last Recorded V/S: Last Vital Signs Temp 36.6 C 08/22/21 16:28 Pulse 77 08/22/21 16:28 Resp 24 H 08/22/21 16:35 BP 147/109 H 08/22/21 16:28 Pulse Ox 97 08/22/21 16:54 - Orders/Labs/Meds Orders: Active Orders 24 hr Category Date Time Status RT Aerosol Therapy [RC] ASDIRECTED Care 08/22/21 16:44 Active Labs: Laboratory Tests 08/22/21 08/22/21 08/22/21 Range/Units 16:25 16:25 16:25 WBC 5.31 (3.98-10.04) K/mm3 RBC 3.85 L (3.98-5.22) M/mm3 Hgb 10.9 L (11.2-15.7) gm/dl Hct 38.2 (34.1-44.9) % MCV 99.2 H (79.4-94.8) fl MCH 28.3 (25.6-32.2) pg MCHC 28.5 L (32.2-35.5) g/dl RDW Std Deviation 51.7 H (36.4-46.3) fL Plt Count 259 D (182-369) K/mm3 MPV 10.0 (9.4-12.3) fl Neut % (Auto) 68.3 (34.0-71.1) % Lymph % (Auto) 17.9 L (19.3-51.7) % [place] % (Auto) 9.6 (4.7-12.5) % Eos % (Auto) 3.4 (0.7-5.8) Baso % (Auto) 0.6 (0.1-1.2) % Neut # (Auto) 3.63 (1.56-6.13) K/mm3 Lymph # (Auto) 0.95 L (1.18-3.74) K/mm3 [place] # (Auto) 0.51 H (0.24-0.36) K/mm3 Eos # (Auto) 0.18 (0.04-0.36) K/mm3 Baso # (Auto) 0.03 (0.01-0.08) K/mm3 Manual Slide Review Abnormal smear Puncture Site ABG pH (7.35-7.45) ABG pCO2 (35.0-45.0) mmHg ABG pO2 (80.0-100.0) mmHg ABG HCO3 (22.0-26.0) meq/L ABG O2 Saturation (96.0-97.0) % ABG Base Excess (-2-2.0) Stefan Test VBG pH (7.30-7.40) VBG pCO2 (41-51) mmHg VBG pO2 (40-80) mmHG VBG HCO3 (22-26) meq/L VBG O2 Saturation VBG Base Excess (-4.0-2.0) A-a Gradient mmHg O2 Delivery Device Oxygen Flow Rate FiO2 (21.00-100.00) % Sodium 146 H (136-145) mEq/L Potassium 4.7 (3.5-5.1) mEq/L Chloride 106 (98-107) mEq/L Carbon Dioxide 38 H (21-32) mEq/L Anion Gap 6.7 (5-15) BUN 19 H (7-18) mg/dL Creatinine 0.9 (0.55-1.02) mg/dL Est Cr Clr Drug Dosing TNP Estimated GFR (MDRD) 59 (>60) mL/min BUN/Creatinine Ratio 21.1 H (14-18) Glucose 119 H (70-99) mg/dL Calcium 8.5 (8.5-10.1) mg/dL Total Bilirubin 0.5 (0.2-1.0) mg/dL AST 25 (15-37) U/L ALT 18 (14-59) U/L Alkaline Phosphatase 78 (46-116) U/L Troponin I 0.302 H* (0.00-0.056) ng/mL NT-Pro-B Natriuret Pep 2132 H (0-450) pg/mL Total Protein 6.3 L (6.4-8.2) g/dl Albumin 2.9 L (3.4-5.0) g/dl Globulin 3.4 gm/dL Albumin/Globulin Ratio 0.9 L (1-2) Urine Color (Yellow) Urine Appearance (Clear) Urine pH (5.0-8.0) Ur Specific [place] (1.005-1.030) Urine Protein (Negative) Urine Glucose (UA) (Negative) Urine Ketones (Negative) Urine Occult Blood (Negative) Urine Nitrite (Negative) Urine Bilirubin (Negative) Urine Urobilinogen (0.2-1.0) Ur Leukocyte Esterase (Negative) Urine RBC (0-5) /hpf Urine WBC (0-5) /hpf Ur Squamous Epith Cells (0-5) /hpf Urine Bacteria (FEW) /hpf Urine Mucus (FEW) /hpf SARS-CoV-2 RNA (KEHINDE) (NEGATIVE) 08/22/21 08/22/21 08/22/21 Range/Units 16:28 16:36 17:01 WBC (3.98-10.04) K/mm3 RBC (3.98-5.22) M/mm3 Hgb (11.2-15.7) gm/dl Hct (34.1-44.9) % MCV (79.4-94.8) fl MCH (25.6-32.2) pg MCHC (32.2-35.5) g/dl RDW Std Deviation (36.4-46.3) fL Plt Count (182-369) K/mm3 MPV (9.4-12.3) fl Neut % (Auto) (34.0-71.1) % Lymph % (Auto) (19.3-51.7) % [place] % (Auto) (4.7-12.5) % Eos % (Auto) (0.7-5.8) Baso % (Auto) (0.1-1.2) % Neut # (Auto) (1.56-6.13) K/mm3 Lymph # (Auto) (1.18-3.74) K/mm3 [place] # (Auto) (0.24-0.36) K/mm3 Eos # (Auto) (0.04-0.36) K/mm3 Baso # (Auto) (0.01-0.08) K/mm3 Manual Slide Review Puncture Site Lt radial ABG pH 7.34 L (7.35-7.45) ABG pCO2 67.0 H (35.0-45.0) mmHg ABG pO2 89.0 (80.0-100.0) mmHg ABG HCO3 35.3 H (22.0-26.0) meq/L ABG O2 Saturation 97.6 H (96.0-97.0) % ABG Base Excess 8.4 H (-2-2.0) Stefan Test Positive VBG pH (7.30-7.40) VBG pCO2 (41-51) mmHg VBG pO2 (40-80) mmHG VBG HCO3 (22-26) meq/L VBG O2 Saturation VBG Base Excess (-4.0-2.0) A-a Gradient 84 mmHg O2 Delivery Device Nasal cannula Oxygen Flow Rate 4.0 FiO2 36.00 (21.00-100.00) % Sodium (136-145) mEq/L Potassium (3.5-5.1) mEq/L Chloride (98-107) mEq/L Carbon Dioxide (21-32) mEq/L Anion Gap (5-15) BUN (7-18) mg/dL Creatinine (0.55-1.02) mg/dL Est Cr Clr Drug Dosing Estimated GFR (MDRD) (>60) mL/min BUN/Creatinine Ratio (14-18) Glucose (70-99) mg/dL Calcium (8.5-10.1) mg/dL Total Bilirubin (0.2-1.0) mg/dL AST (15-37) U/L ALT (14-59) U/L Alkaline Phosphatase (46-116) U/L Troponin I (0.00-0.056) ng/mL NT-Pro-B Natriuret Pep (0-450) pg/mL Total Protein (6.4-8.2) g/dl Albumin (3.4-5.0) g/dl Globulin gm/dL Albumin/Globulin Ratio (1-2) Urine Color Yellow (Yellow) Urine Appearance Clear (Clear) Urine pH 7.0 (5.0-8.0) Ur Specific [place] 1.025 (1.005-1.030) Urine Protein Trace H (Negative) Urine Glucose (UA) Negative (Negative) Urine Ketones Negative (Negative) Urine Occult Blood Negative (Negative) Urine Nitrite Negative (Negative) Urine Bilirubin Negative (Negative) Urine Urobilinogen 0.2 (0.2-1.0) Ur Leukocyte Esterase Negative (Negative) Urine RBC 0-5 (0-5) /hpf Urine WBC 0-5 (0-5) /hpf Ur Squamous Epith Cells 0-5 (0-5) /hpf Urine Bacteria Occasional (FEW) /hpf Urine Mucus Not seen (FEW) /hpf SARS-CoV-2 RNA (KEHINDE) Negative (NEGATIVE) 08/22/21 Range/Units 23:35 WBC (3.98-10.04) K/mm3 RBC (3.98-5.22) M/mm3 Hgb (11.2-15.7) gm/dl Hct (34.1-44.9) % MCV (79.4-94.8) fl MCH (25.6-32.2) pg MCHC (32.2-35.5) g/dl RDW Std Deviation (36.4-46.3) fL Plt Count (182-369) K/mm3 MPV (9.4-12.3) fl Neut % (Auto) (34.0-71.1) % Lymph % (Auto) (19.3-51.7) % [place] % (Auto) (4.7-12.5) % Eos % (Auto) (0.7-5.8) Baso % (Auto) (0.1-1.2) % Neut # (Auto) (1.56-6.13) K/mm3 Lymph # (Auto) (1.18-3.74) K/mm3 [place] # (Auto) (0.24-0.36) K/mm3 Eos # (Auto) (0.04-0.36) K/mm3 Baso # (Auto) (0.01-0.08) K/mm3 Manual Slide Review Puncture Site ABG pH (7.35-7.45) ABG pCO2 (35.0-45.0) mmHg ABG pO2 (80.0-100.0) mmHg ABG HCO3 (22.0-26.0) meq/L ABG O2 Saturation (96.0-97.0) % ABG Base Excess (-2-2.0) Stefan Test VBG pH 7.36 (7.30-7.40) VBG pCO2 69.1 H (41-51) mmHg VBG pO2 33.0 L (40-80) mmHG VBG HCO3 38.3 H (22-26) meq/L VBG O2 Saturation 54.2 VBG Base Excess 11.2 H (-4.0-2.0) A-a Gradient mmHg O2 Delivery Device Nasal cannula Oxygen Flow Rate FiO2 (21.00-100.00) % Sodium (136-145) mEq/L Potassium (3.5-5.1) mEq/L Chloride (98-107) mEq/L Carbon Dioxide (21-32) mEq/L Anion Gap (5-15) BUN (7-18) mg/dL Creatinine (0.55-1.02) mg/dL Est Cr Clr Drug Dosing Estimated GFR (MDRD) (>60) mL/min BUN/Creatinine Ratio (14-18) Glucose (70-99) mg/dL Calcium (8.5-10.1) mg/dL Total Bilirubin (0.2-1.0) mg/dL AST (15-37) U/L ALT (14-59) U/L Alkaline Phosphatase (46-116) U/L Troponin I (0.00-0.056) ng/mL NT-Pro-B Natriuret Pep (0-450) pg/mL Total Protein (6.4-8.2) g/dl Albumin (3.4-5.0) g/dl Globulin gm/dL Albumin/Globulin Ratio (1-2) Urine Color (Yellow) Urine Appearance (Clear) Urine pH (5.0-8.0) Ur Specific [place] (1.005-1.030) Urine Protein (Negative) Urine Glucose (UA) (Negative) Urine Ketones (Negative) Urine Occult Blood (Negative) Urine Nitrite (Negative) Urine Bilirubin (Negative) Urine Urobilinogen (0.2-1.0) Ur Leukocyte Esterase (Negative) Urine RBC (0-5) /hpf Urine WBC (0-5) /hpf Ur Squamous Epith Cells (0-5) /hpf Urine Bacteria (FEW) /hpf Urine Mucus (FEW) /hpf SARS-CoV-2 RNA (KEHINDE) (NEGATIVE) Meds: Medications Discontinued Medications Generic Name Dose Route Start Last Admin Trade Name Delmi PRN Reason Stop Dose Admin Albuterol/Ipratropium 3 ml 08/22/21 16:44 08/22/21 16:54 Albuterol/Ipratropium 3.0-0.5 Mg/3 Ml Neb Soln NEB 08/22/21 16:45 3 ml ONETIME ONE Administration Furosemide 40 mg 08/22/21 16:50 08/22/21 18:29 Furosemide 40 Mg/4 Ml Vial IVPUSH 08/22/21 16:51 40 mg NOW ONE Administration Methylprednisolone Sodium Succinate 80 mg 08/22/21 17:03 08/22/21 18:29 Methylprednisolone Sodium Succinate 125 Mg/2 Ml Sdv IVPUSH 08/22/21 17:04 80 mg ONETIME ONE Administration - Re-Assessments/Exams Free Text/Narrative Re-Assessment/Exam: 08/22/21 18:51 Gases were obtained which show her CO2 to be up at 67. Her O2 was turned down she was trialed on this did not go well. She had a breathing treatment that did help right now she seems to be doing pretty well on oxygen at 2 L her O2 sats are in the upper 80s we will have to turn this up. Her troponin is elevated I did discuss this again with the patient she does not want any heroics done does not want to be transferred out for further evaluation. 08/22/21 19:18 This time is change of shift further care and disposition per Dr. Mcmahan Departure - Departure Time of Disposition: 07:17 - My Orders Last 24 Hours: My Active Orders 08/22/21 16:44 RT Aerosol Therapy [RC] ASDIRECTED - Assessment/Plan Last 24 Hours: My Active Orders 08/22/21 16:44 RT Aerosol Therapy [RC] ASDIRECTED
[2021-08-22 16:32] VITALS: BP 147/109; PULSE 77
[2021-08-22] MEDS ORDERED: Albuterol/Ipratropium 3.0-0.5 MG/3 ML Neb Soln NEB ONE (16:44)
[2021-08-22] MEDS ORDERED: Furosemide 40 MG/4 ML VIAL IVPUSH ONE (16:50)
[2021-08-22] MEDS ORDERED: methylPREDNISolone Sodium Succinate 125 MG/2 ML SDV IVPUSH ONE (17:03)
--- NOTE | 2021-08-22 20:40 | CR ---
Chest: Frontal view of the chest was obtained. Comparison: Prior chest x-ray of 02/27/21. Heart is enlarged. Tortuous thoracic aorta is noted. Slight area of consolidation is noted below the minor fissure within the right lower lung. Previous study showed a nodule within the right lung base which is less prominent on current study. Slight thickening of the right minor fissure is seen which appears as a stable finding. Lungs otherwise are clear although mild chronic pulmonary vascular congestion appears to be present. Bony structures are osteopenic. Old rib fractures which appear healed are seen on both sides of the chest. Impression: 1. Mild area of consolidation below the right minor fissure raising the possibility of an area of pneumonia. Please correlate. 2. Cardiomegaly and mild chronic pulmonary vascular congestion. 3. Other findings believed to be incidental as described above. Diagnostic code #3
== END 2021-08-23 07:30 | disposition home or self-care (01) ==
LOC: JD.ED 16:21
DX: J44.9 Chronic obstructive pulmonary disease, unspecified (principal); J00 Acute nasopharyngitis [common cold]; I11.0 Hypertensive heart disease with heart failure; I50.9 Heart failure, unspecified; E78.00 Pure hypercholesterolemia, unspecified; E03.9 Hypothyroidism, unspecified; Z79.899 Other long term (current) drug therapy; Z20.822 Contact with and (suspected) exposure to COVID-19
CPT/HCPCS: 36415; 36600; 71045; 80053; 81001; 82803; 83880; 84484; 85025; 94640; 96374; 96375; 99285; J1940; J2930; U0002; J7620-GY

== ENCOUNTER 2021-12-04 10:58 | Emergency (ER) | payer MEDICARE, OTHER ==
[2021-12-04 11:16] VITALS: BP 169/80; PULSE 70
[2021-12-04] MEDS ORDERED: Lidocaine 1% with EPINEPHrine 1:100,000 10 ML MDV INJECT ONE (11:20)
[2021-12-04] MEDS ORDERED: Oxymetazoline 0.05% Nasal Spray 30 ML Bottle NAS ONE (11:20)
[2021-12-04] MEDS ORDERED: Tranexamic Acid 1,000 MG in Sodium Chloride 0.9% 100 ML IV SCH (11:30)
== END 2021-12-04 14:09 | disposition home or self-care (01) ==
LOC: JD.ED 10:58
DX: R04.0 Epistaxis (principal); I11.0 Hypertensive heart disease with heart failure; I50.9 Heart failure, unspecified; E78.00 Pure hypercholesterolemia, unspecified; J44.9 Chronic obstructive pulmonary disease, unspecified; E03.9 Hypothyroidism, unspecified; F03.90 Unspecified dementia, unspecified severity, without behavioral disturbance, psychotic disturbance, mood disturbance, and anxiety; Z87.891 Personal history of nicotine dependence; Z79.899 Other long term (current) drug therapy
CPT/HCPCS: 36415; 85025; 99283; A9270; 30901

== ENCOUNTER 2022-07-14 04:50 | Emergency (ER) | payer MEDICARE, OTHER ==
[2022-07-14] MEDS ORDERED: Sodium Chloride 0.9% 10 ML Syringe FLUSH PRN ×2 (06:21→07:25)
[2022-07-14] MEDS ORDERED: Iopamidol 612 MG/ML 100 ML Bottle IVPUSH ONE (07:25)
[2022-07-14] MEDS ORDERED: methylPREDNISolone Sodium Succinate 125 MG/2 ML SDV IVPUSH PRN (09:16)
[2022-07-14] MEDS ORDERED: EPINEPHrine 1 MG/ML SDV IM PRN (09:16)
[2022-07-14] MEDS ORDERED: diphenhydrAMINE 50 MG/ML SDV IVPUSH PRN (09:16)
[2022-07-14] MEDS ORDERED: Famotidine 20 MG/2 ML SDV IVPUSH PRN (09:16)
[2022-07-14] MEDS ORDERED: Sodium Chloride 0.9% 10 ML Syringe FLUSH SCH (09:30)
[2022-07-14 09:48] VITALS: PULSE 86
[2022-07-14 10:40] VITALS: BP 125/56
== END 2022-07-14 10:20 | disposition home or self-care (01) ==
LOC: JD.ED 04:50
DX: U07.1 COVID-19 (principal); I11.0 Hypertensive heart disease with heart failure; I50.9 Heart failure, unspecified; H92.21 Otorrhagia, right ear; J44.9 Chronic obstructive pulmonary disease, unspecified; E78.00 Pure hypercholesterolemia, unspecified; I25.2 Old myocardial infarction; Z79.899 Other long term (current) drug therapy; Z90.49 Acquired absence of other specified parts of digestive tract; Z87.891 Personal history of nicotine dependence
CPT/HCPCS: 36415; 70487; 71045; 80053; 83880; 84484; 85007; 85027; 85610; 85730; 93005; 99284; J3490; M0222; Q0222; Q9967; U0002

== ENCOUNTER 2022-07-15 19:24 | Inpatient (IN) | payer MEDICARE, OTHER ==
[2022-07-16] MEDS ORDERED: Sodium Chloride 0.9% 1,000 ML IV SCH (02:15)
[2022-07-16] MEDS ORDERED: REMDESIVIR 200 MG in Sodium Chloride 0.9% 250 ML IV ONE (10:00)
[2022-07-16] MEDS: Enoxaparin 30 MG/0.3 ML Syringe SUBCUT SCH ×2 (10:15→11:41)
[2022-07-16] MEDS: LOSARTAN 25 MG PO SCH ×2 (10:16→11:41)
[2022-07-16] MEDS: LEVOTHYROXINE 25 MCG PO SCH ×2 (10:16→11:39)
[2022-07-16] MEDS: CARVEDILOL 25 MG PO SCH ×3 (10:20→22:06)
[2022-07-16] MEDS: FUROSEMIDE 80 MG PO SCH ×2 (10:21→11:41)
[2022-07-16] MEDS: VENLAFAXINE 37.5 MG PO SCH ×2 (10:22→11:41)
[2022-07-16] MEDS: ISOSORBIDE MONONITRATE 30 MG PO SCH ×2 (10:23→11:41)
[2022-07-16] MEDS: [UNRECOGNIZED DRUG - OTHER] INH SCH (13:32)
[2022-07-16] MEDS: Albuterol/Ipratropium 3.0-0.5 MG/3 ML Neb Soln NEB PRN ×3 (13:32→20:45)
[2022-07-16] MEDS: UMECLIDINIUM 62.5 MCG INH SCH (13:32)
[2022-07-16] MEDS: ADVAIR INH SCH ×2 (13:32→20:45)
[2022-07-16] MEDS ORDERED: Furosemide 40 MG/4 ML VIAL IVPUSH ONE (14:40)
[2022-07-16] MEDS: methylPREDNISolone Sodium Succinate 40 MG/1 ML SDV IVPUSH SCH ×2 (14:56→22:06)
[2022-07-16] MEDS ORDERED: LORazepam 2 MG/ML SDV IVPUSH PRN (15:41)
[2022-07-16] MEDS ORDERED: LORazepam 2 MG/ML SDV IVPUSH ONE (16:28)
[2022-07-16] MEDS: LORazepam 2 MG/ML SDV IVPUSH PRN (19:04)
[2022-07-16] MEDS: MIRTAZAPINE 15 MG PO SCH (22:07)
[2022-07-17] MEDS: LORazepam 2 MG/ML SDV IVPUSH PRN (00:02)
[2022-07-17] MEDS: LEVOTHYROXINE 25 MCG PO SCH (06:53)
[2022-07-17] MEDS: methylPREDNISolone Sodium Succinate 40 MG/1 ML SDV IVPUSH SCH ×3 (06:54→22:42)
[2022-07-17] MEDS: Enoxaparin 30 MG/0.3 ML Syringe SUBCUT SCH (08:20)
[2022-07-17] MEDS: FUROSEMIDE 80 MG PO SCH (08:26)
[2022-07-17] MEDS: LOSARTAN 25 MG PO SCH (08:26)
[2022-07-17] MEDS: CARVEDILOL 25 MG PO SCH ×2 (08:33→22:42)
[2022-07-17] MEDS: ISOSORBIDE MONONITRATE 30 MG PO SCH (08:37)
[2022-07-17] MEDS: VENLAFAXINE 37.5 MG PO SCH (08:44)
[2022-07-17] MEDS: Albuterol/Ipratropium 3.0-0.5 MG/3 ML Neb Soln NEB PRN ×2 (09:00→13:43)
[2022-07-17] MEDS ORDERED: REMDESIVIR 100 MG in Sodium Chloride 0.9% 250 ML IV SCH (09:00)
[2022-07-17] MEDS: ADVAIR INH SCH ×2 (09:01→20:42)
[2022-07-17] MEDS: [UNRECOGNIZED DRUG - OTHER] INH SCH (09:01)
[2022-07-17] MEDS: UMECLIDINIUM 62.5 MCG INH SCH (09:01)
[2022-07-17] MEDS: REMDESIVIR 100 MG in Sodium Chloride 0.9% 250 ML IV SCH (10:22)
[2022-07-17] MEDS: MIRTAZAPINE 15 MG PO SCH (22:42)
[2022-07-18] MEDS: methylPREDNISolone Sodium Succinate 40 MG/1 ML SDV IVPUSH SCH (07:00)
[2022-07-18] MEDS: Dextrose 5% in Water 1,000 ML IV SCH (07:00)
[2022-07-18] MEDS: LEVOTHYROXINE 25 MCG PO SCH (07:00)
[2022-07-18] MEDS: Albuterol/Ipratropium 3.0-0.5 MG/3 ML Neb Soln NEB PRN ×2 (08:05→20:32)
[2022-07-18] MEDS: UMECLIDINIUM 62.5 MCG INH SCH (08:06)
[2022-07-18] MEDS: ADVAIR INH SCH ×2 (08:06→20:34)
[2022-07-18] MEDS: [UNRECOGNIZED DRUG - OTHER] INH SCH (08:06)
[2022-07-18] MEDS ORDERED: Furosemide 40 MG Tab PO SCH (09:00)
[2022-07-18] MEDS: REMDESIVIR 100 MG in Sodium Chloride 0.9% 250 ML IV SCH (09:16)
[2022-07-18] MEDS: Enoxaparin 30 MG/0.3 ML Syringe SUBCUT SCH (09:16)
[2022-07-18] MEDS: Carvedilol 12.5 MG Tab PO SCH ×2 (09:32→21:30)
[2022-07-18] MEDS: Losartan 25 MG Tab PO SCH (09:33)
[2022-07-18] MEDS: Isosorbide Mononitrate 30 MG Tab.ER PO SCH (09:33)
[2022-07-18] MEDS: Venlafaxine 37.5 MG Cap.ER PO SCH (09:33)
[2022-07-18] MEDS: Furosemide 40 MG/4 ML VIAL IVPUSH SCH (10:32)
[2022-07-18] MEDS: LORazepam 2 MG/ML SDV IVPUSH PRN (12:07)
[2022-07-18] MEDS: methylPREDNISolone Sodium Succinate 125 MG/2 ML SDV IVPUSH SCH (16:09)
[2022-07-18] MEDS ORDERED: Mirtazapine 15 MG Tab PO SCH (21:00)
[2022-07-19] MEDS: LORazepam 2 MG/ML SDV IVPUSH PRN ×5 (01:56→23:51)
[2022-07-19] MEDS: Dextrose 5% in Water 1,000 ML IV SCH (04:32)
[2022-07-19] MEDS ORDERED: Levothyroxine 25 MCG Tab PO SCH (06:00)
[2022-07-19] MEDS: Venlafaxine 37.5 MG Cap.ER PO SCH (08:31)
[2022-07-19] MEDS: Enoxaparin 30 MG/0.3 ML Syringe SUBCUT SCH (08:36)
[2022-07-19] MEDS: methylPREDNISolone Sodium Succinate 125 MG/2 ML SDV IVPUSH SCH (08:54)
[2022-07-19] MEDS: Furosemide 40 MG/4 ML VIAL IVPUSH SCH (08:59)
[2022-07-19] MEDS: REMDESIVIR 100 MG in Sodium Chloride 0.9% 250 ML IV SCH (09:06)
[2022-07-19] MEDS: Albuterol/Ipratropium 3.0-0.5 MG/3 ML Neb Soln NEB PRN ×2 (09:20→16:46)
[2022-07-19] MEDS: ADVAIR INH SCH (09:21)
[2022-07-19] MEDS: UMECLIDINIUM 62.5 MCG INH SCH (09:21)
[2022-07-19] MEDS: [UNRECOGNIZED DRUG - OTHER] INH SCH (09:21)
[2022-07-19] MEDS ORDERED: Morphine 2 MG/ML SYRINGE IVPUSH ONE (10:02)
[2022-07-19] MEDS: Isosorbide Mononitrate 30 MG Tab.ER PO SCH (10:35)
[2022-07-19] MEDS: Losartan 25 MG Tab PO SCH (10:35)
[2022-07-19] MEDS: Carvedilol 12.5 MG Tab PO SCH (10:35)
[2022-07-19] MEDS ORDERED: Scopolamine 1.5 MG Transdermal Patch TRDERM PRN (15:48)
[2022-07-19] MEDS ORDERED: fentaNYL 100 MCG/2 ML SDV IVPUSH PRN (15:48)
[2022-07-20] MEDS: LORazepam 2 MG/ML SDV IVPUSH PRN ×7 (02:05→21:07)
[2022-07-20] MEDS ORDERED: Glycopyrrolate 0.2 MG/ML SDV IVPUSH PRN (07:30)
[2022-07-20] MEDS ORDERED: fentaNYL 50 MCG/HR Transdermal Patch TRDERM SCH ×2 (13:00→14:00)
[2022-07-21 10:04] VITALS: BP 102/47
[2022-07-22 12:29] VITALS: PULSE 59
== END 2022-07-23 04:15 | disposition expired | DRG 177 ==
LOC: JD.ED 19:24 → JD.MS 07-16 01:01 → OBSVTOIN 07-16 08:09
PROVIDERS: ADMIT Internal Medicine; ATTEND Internal Medicine
PROC: XW033E5 Introduction of Remdesivir Anti-infective into Peripheral Vein, Percutaneous Approach, New Technology Group 5 (ICD-10-PCS; principal; 2022-07-16)
PROC: 5A0945A Assistance with Respiratory Ventilation, 24-96 Consecutive Hours, High Flow/Velocity Cannula (ICD-10-PCS; 2022-07-16)
DX: U07.1 COVID-19 (principal); R77.8 Other specified abnormalities of plasma proteins; J96.21 Acute and chronic respiratory failure with hypoxia; I50.9 Heart failure, unspecified; Z66 Do not resuscitate; Z51.5 Encounter for palliative care; H54.7 Unspecified visual loss; E78.00 Pure hypercholesterolemia, unspecified; I11.0 Hypertensive heart disease with heart failure; J44.9 Chronic obstructive pulmonary disease, unspecified; R32 Unspecified urinary incontinence; F02.80 Dementia in other diseases classified elsewhere, unspecified severity, without behavioral disturbance, psychotic disturbance, mood disturbance, and anxiety; G30.9 Alzheimer's disease, unspecified; R00.1 Bradycardia, unspecified; F32.A Depression, unspecified; E03.9 Hypothyroidism, unspecified; Z90.89 Acquired absence of other organs; Z79.890 Hormone replacement therapy; I25.2 Old myocardial infarction; Z79.899 Other long term (current) drug therapy; Z98.49 Cataract extraction status, unspecified eye; Z99.81 Dependence on supplemental oxygen
CPT/HCPCS: 36415 ×2; 70450; 71045; 80048; 80053; 81001; 83735; 83880; 84484; 85007; 85025; 85027; 85379; 85610; 93005; 96361; 96365; 96372; 96375; 96376; 99285; G0378 ×2; J7030; 36600; 82803; 87641; 93010; 93306; 94640; 94660; 94760; 94761; 94762; 99223; 99233; 99284; A9270-GY; J1650; J1940; J2060; J2270; J2920; J2930; J3010; J7050; J7060; J7620-GY